=== PATIENT | female | born 2000 | race African-American/Black ===

== ENCOUNTER 2022-12-06 16:48 | Emergency (ER) | payer OTHER, SELFPAY ==
--- NOTE | ~2022-12-06 | XR_ITS ---
EXAMINATION: XR wrist LT min 3V DATE: 12/06/2022 17:18 INDICATION: Left wrist pain. Injury. TECHNIQUE: 4 views of left wrist were obtained. COMPARISON: None. FINDINGS: Bone alignment is normal. No fracture. Joint spaces are normal. IMPRESSION: 1. Normal left wrist. Reviewed, dictated and finalized at location E. IMPRESSION: 1. Normal left wrist.
--- NOTE | 2022-12-06 16:59 | ED.UPPEXIN ---
HPI - Extremity Injury (Upper) General Chief Complaint: Extremity Injury, Upper Stated Complaint: left wrist injury Time Seen by Provider: 12/06/22 17:33 Source: patient and RN notes reviewed Mode of arrival: ambulatory Limitations: no limitations History of Present Illness HPI narrative: 22-year-old female presents with concern for left wrist pain. Reports 3 days ago at work she was dealing with an equipment that was malfunctioning when she hyperflexed her wrist and also twisted it the same time. She reports she is having pain in the mid dorsal aspect of the wrist. She reports she used a brace without relief. Reports it was painful to go to work yesterday. MD complaint: injury to: left and wrist Related Data Allergies Allergy/AdvReac Type Severity Reaction Status Date / Time No Known Allergies Allergy Verified 12/06/22 16:55 Review of Systems Review of Systems: CONSTITUTIONAL: Denies malaise, chills, sweats, or fever. SKIN: Denies rash or itching, open skin, laceration, abrasion, redness, warmth, swelling. MUSCULOSKELETAL: Reports left wrist pain NEUROLOGIC: Denies numbness, weakness All systems reviewed & are unremarkable except as noted in HPI and below PMFSH Comments At time of signature, agree with nursing past medical, surgical, social and family history. There is no relevant family history pertinent to the presenting complaint Exam Narrative: GENERAL: Well-appearing, well-nourished, and in no acute distress. HEAD: Normocephalic, atraumatic. EYES: PERRLA, conjunctivae clear NECK: Supple. CHEST: Speaks in full sentences. No respiratory distress. HEART: Regular rate and rhythm. Normal and equal peripheral pulses. EXTREMITIES: Left wrist, hand, digits have grossly normal strength and sensation, limited range of motion, likely due to pain. No edema or ecchymosis. Normal sensation with sensitivity to light touch and pain. Dorsal mid wrist tenderness no open wounds, no skin tenting, no devitalized tissue or atrophy, no trophic changes, no obvious deformity, alignment normal, nearby joints and structures intact. Distal pulses palpable and equal bilaterally, skin warm, dry, pink. Capillary refill less than 3 seconds. SKIN: Warm, dry, no rash. NEURO: Alert and oriented x3. PSYCH: Normal mood and affect Course Course Emergency Course: Patient is aware of diagnosis, understands and agrees to treatment plan. Anticipatory guidance given. Patient agrees to follow-up as directed and is aware of reasons to seek care at the emergency department. Portions of this record may have been created with voice recognition software Level of Care: Express Care Visit Vital Signs Vital signs: Vital Signs Temperature 98.5 F 12/06/22 17:03 Pulse Rate 77 12/06/22 17:03 Respiratory Rate 16 12/06/22 17:03 Blood Pressure 123/45 L 12/06/22 17:03 Pulse Oximetry 99 12/06/22 17:03 Oxygen Delivery Room Air 12/06/22 17:03 Temperature 98.5 F 12/06/22 17:03 Pulse Rate 77 12/06/22 17:03 Respiratory Rate 16 12/06/22 17:03 Blood Pressure 123/45 L 12/06/22 17:03 Pulse Oximetry 99 12/06/22 17:03 Oxygen Delivery Room Air 12/06/22 17:03 Reviewed. MDM - Extremity Injury (Upper) MDM Narrative Medical decision making narrative: Patients injury and pain is consistent with musculoskeletal etiology. No signs of neurological or vascular compromise on exam. Compartments and tissues are soft without signs of compartment syndrome. Pain is felt appropriate for further evaluation on an outpatient basis. Imaging Data My impression: Images reviewed, interpreted by radiologist, agree, see report. Radiologist's impression: EXAMINATION: XR wrist LT min 3V DATE: 12/06/2022 17:18 INDICATION: Left wrist pain. Injury. TECHNIQUE: 4 views of left wrist were obtained. COMPARISON: None. FINDINGS: Bone alignment is normal. No fracture. Joint spaces are normal. IMPRESSION: 1. Normal left wrist. Crit
[2022-12-06 17:03] VITALS: BP 123/45; PULSE 77; RESP 16; TEMP 36.9; O2SAT 99
== END 2022-12-06 17:47 | disposition home or self-care (01) ==
PROVIDERS: Emergency Provider Nurse Practitioner; PCP Family Medicine
DX: S63.502A Unspecified sprain of left wrist, initial encounter (principal); S66.912A Strain of unspecified muscle, fascia and tendon at wrist and hand level, left hand, initial encounter; X50.9XXA Other and unspecified overexertion or strenuous movements or postures, initial encounter; Y99.0 Civilian activity done for income or pay
CPT/HCPCS: 73110; 99213; G0463

== ENCOUNTER 2023-11-22 15:46 | Outpatient (CLI) | payer OTHER, SELFPAY ==
[2023-11-22 17:15] LABS: SARS-CoV-2 RNA PCR Negative (Negative)
== END 2023-11-22 15:47 | disposition home or self-care (01) ==
PROVIDERS: PCP Family Medicine; Visit Provider Physician Assistant
DX: J02.9 Acute pharyngitis, unspecified (principal); Z20.822 Contact with and (suspected) exposure to COVID-19
CPT/HCPCS: 87635

== ENCOUNTER 2024-01-03 15:43 | Outpatient (CLI) | payer OTHER, SELFPAY ==
--- NOTE | ~2024-01-03 | US_ITS ---
EXAMINATION: US venous doppler [facility] DATE: 01/03/2024 16:11 INDICATION: Left thigh numbness, currently , r/o DVT . TECHNIQUE: Grayscale images without and with compression and Doppler images of the left lower extremi ty veins were obtained. COMPARISON: None FINDINGS: The left common femoral vein, profunda (deep) femoral vein, femoral vein, popliteal vein, peroneal v ein, posterior tibial veins, gastrocnemius vein, and greater saphenous vein are patent. IMPRESSION: Patent left lower extremity veins. No evidence of deep venous thrombosis. Reviewed, dictated and finalized at location K.
== END 2024-01-03 15:44 | disposition home or self-care (01) ==
LOC: ANHIMG 15:44
PROVIDERS: PCP Family Medicine; Visit Provider Physician Assistant
DX: M79.89 Other specified soft tissue disorders (principal)
CPT/HCPCS: 93971

== ENCOUNTER 2024-02-16 15:18 | Outpatient (CLI) | payer OTHER, SELFPAY ==
--- NOTE | ~2024-02-16 | XR_ITS ---
XR chest 2V Ordering provider: Paulina Conte CNM History: 24 years Female with . Wheezing . Comparison: None. FINDINGS: MEDIASTINUM: The cardiac silhouette is not enlarged. LUNGS: No infiltrates, effusions or pneumothorax. Prominent markings in the lower lobes. OTHER: No free air under the diaphragm. IMPRESSION: No acute cardiopulmonary pathology. Reviewed, dictated and finalized at location A.
== END 2024-02-16 15:19 | disposition home or self-care (01) ==
LOC: ANHIMG 15:23
PROVIDERS: PCP Family Medicine; Visit Provider Advanced Practice Midwife
DX: R06.2 Wheezing (principal); Z3A.17 17 weeks gestation of pregnancy
CPT/HCPCS: 71046

== ENCOUNTER 2024-05-23 22:58 | Emergency (ER) | payer OTHER, SELFPAY ==
--- OUTSIDE RECORDS SUMMARY | 2024-05-23 23:00 | XMS_ITS | Data Portability ---
Author Organization [facility] Address [address] [place] [address] [place] [address] Care Team Providers Care Spot Facer Name Role Phone ARCHIEEYAL JARRETT Primary Care Provider Assessment Encounter Date Assessment Date Assessment LastModified by Organization Details LastModified Time 04/05/2024 04/05/2024 Patient is ___weeks . Discussed plan. [email or web address] Not available 04/05/2024 17:37:01 05/03/2024 05/03/2024 Patient is __28_weeks . Discussed plan. [email or web address] Not available 05/03/2024 10:15:25 05/17/2024 05/17/2024 Patient is _30__weeks . Discussed plan. [email or web address] Not available 05/17/2024 11:19:33 Plan of Treatment Reminders Order Date Submit Date Provider Last Modified By Organization Details Last Modified Time Details Appointments OB ROUTINE 2024 09:45A M Paulina Conte CNM Not available Not available Not available U/S OB GROWTH 2024 10:00A M ULTRASOUND Not available Not available Not available OB ROUTINE 2024 10:30A M Paulina Conte CNM Not available Not available Not available Lab None recorde d. Referral None recorde d. Procedures None recorde d. Surgeries None recorde d. Imaging US, obstetr ic, follow- up 2023 024 [email or web address] [address], [address], [place], [address], 04/05/2024 22:38:15 US, obstetr ic, follow- up 2024 025 [email or web address] [place], [address], [address], [place], [address], 05/17/2024 12:52:06 Medication Orders None recorde d. Patient TargetsNo targets recorded. Patient InstructionsNo instructions recorded. Reason for Referral None Reported. Results Created Date Observation Date Name Description Value Unit Range Abnormal Flag Note LastModifiedBy Organization Detail LastModifiedTime 03/10/20 24 03/10/2024 HEMAT OCRIT (HCT) HCT 38.6 % (based on docume nted legal sex) 34.0-4 5.0 Not Available [facility] (Lab) [address], [place], [address], 03/11/2024 15:31:00 03/10/20 24 03/10/2024 HEMOG LOBIN (HGB) HGB 12.2 g/dL (based on docume nted legal sex) 11.6-1 5.4 Not Available [facility] (Lab) [address], [place], [address], 03/11/2024 15:31:01 03/10/20 24 03/10/2024 GTT - GESTA SHELBY L SCREE N, ACOG OB glucose, 1 hour screen 97 mg/dL 70-135 Not Available [facility] (Lab) [address], [place], [address], 03/11/2024 15:31:01 03/10/20 24 03/10/2024 HIV 1/2 ANTIG EN/AN TIBOD Y, REFLE X CONFI RMATI ON HIV antigen/anti body Nonrea ctive nonrea ctive HIV-1 antig en and HIV-1 /HIV- 2 antib odies were not detec ange. No labor atory evide nce of HIV infec tion. Not Available [facility] (Lab) [address], [place], [address], 03/11/2024 15:31:02 03/10/20 24 03/10/2024 RPR SCREE N, REFLE X TITER /CONF IRMAT ION RPR screen Nonrea ctive nonrea ctive Not Available [facility] (Lab) [address], [place], [address], 03/11/2024 15:31:02 05/17/19 25 05/17/2024 GTT - GESTA SHELBY L SCREE N, ACOG OB glucose, 1 hour screen 109 mg/dL 70-135 Not Available [facility] (Lab) [address] [facility], [place], [address], 05/18/2024 11:06:04 05/17/19 25 05/17/2024 HEMOG LOBIN (HGB) HGB 11.8 g/dL (based on docume nted legal sex) 11.6-1 5.4 Not Available [facility] (Lab) [address], [place], [address], 05/18/2024 11:06:05 05/17/19 25 05/17/2024 HEMAT OCRIT (HCT) HCT 36.5 % (based on docume nted legal sex) 34.0-4 5.0 Not Available [facility] (Lab) [address] [facility] [address], [place], [address], 05/18/2024 11:06:05 05/17/19 25 05/17/2024 HIV 1/2 ANTIG EN/AN TIBOD Y, REFLE X CONFI RMATI ON HIV antigen/anti body Nonrea ctive nonrea ctive HIV-1 antig en and HIV-1 /HIV- 2 antib odies were not detec ange. No labor atory evide nce of HIV infec tion. Not Available [facility] (Lab) [address] [facility], [place], [address], 05/18/2024 11:06:06 05/17/19 25 05/17/2024 RPR SCREE N, REFLE X TITER /CONF IRMAT ION RPR screen Nonrea ctive nonrea ctive Not Available [facility] (Lab) [address], [place], [address], 05/18/2024 11:06:06 03/10/20 24 03/10/2024 US, obste tric, 2nd or 3rd trime ster No observ ation [facility]. [email or web address] [address], [place], [address], 03/10/2024 17:37:07 03/10/20 24 03/10/2024 US, obste tric, 2nd or 3rd trime ster No observ ation record ed. REECE [address], [place], [address], 03/15/2024 11:51:47 04/05/20 24 04/05/2024 US, obste tric, follo w-up No observ ation record ed. [email or web address] [facility] [address], [place], [address], 04/05/2024 16:24:38 04/05/20 24 04/05/2024 US, obste tric, follo w-up No observ ation record ed. [email or web address] [address], [place], [address], 04/05/2024 21:57:02 05/17/19 25 05/17/2024 US, obste tric, follo w-up No observ ation record ed. [email or web address] [facility] [address], [place], [address], 05/17/2024 13:51:17 05/17/19 25 05/17/2024 US, obste tric, follo w-up No observ ation record ed. [email or web address] [address], [place], [address], 05/17/2024 12:35:24 Result Notes None recorded. Problems Name Problem SNOMED Code Status Onset Date Resolution Date Notes Provider Name and Address Organization Details Recorded Time Contrace ption care manageme nt Completed 201709/10/2021 Encounte r for contrace ptive manageme nt, unspecif ied;Jay rded Elsewher e: No Locat ion: [facility] S ource: EHR Charger Operator karin: N Practi ce ID: 0001 Elmer lable Time: 11:30:00 AM Mehnaz Gomez [facility] 2 17:49:57 Premenst rual tension syndrome 34436263 Completed 201209/10/2021 Premenst rual tension syndrome s;Record ed Elsewher e: No Locat ion: [facility] S ource: EHR Charger Operator karin: N Fabyti ce ID: 0001 Elmer lable Time: 09:30:00 AM Mehnaz Gomez [facility] 2 17:49:[address] Concept Completed 201409/10/2021 Encntr for routine child health exam w/o abnormal findings ;Recorde d Elsewher e: No Locat ion: [facility] S ource: EHR Charger Operator karin: N Fabyti ce ID: 0001 Elmer lable Time: 02:45:00 PM Mehnaz Gomez [facility] 2 17:49:[address] Concept Completed 201409/10/2021 Encntr for gynecological assistant exam (general ) (routine ) w/o abn findings ;Practic e ID: 0001 Mehnaz Gomez [facility] 2 17:49:57 Vaginola bial hernia Completed 201809/10/2021 Other specifie d noninfla mmatory disorder s of vagina;P ractice ID: 0001 Mehnaz Jason wall [facility] 2 17:49:57 Syphilis test finding 814633386 Completed 201809/10/2021 Encounte r for STD screenin g;Record ed Elsewher e: No Locat ion: Cassandra koehler [facility] S ource: EHR Charger Operator karin: N Bay ce ID: 0001 Elmer lable Time: 03:30:00 PM Mehnaz Gomez [facility], [facility] 2 17:49:57 Pregnanc y 46055634 Active 2023 Haleyjuancarlos Parker [facility], [facility] 4 11:34:49 Mixed anxiety and depressi ve disorder 789400783 Active no current treatmen t, school related Paulina Conte CNM [address], [place], [address], [facility] 4 12:02:43 Obesity 371322371 Active BMI 40, plan antenata l testing Paulina Conte CNM [address], [place], [address], [facility] 4 12:04:06 Hemoglob in A1c measurem ent Active elevated 5.8 Early 1hr GCT 20wks Penny Burnham [facility], [facility] 4 11:28:47 Hemoglob in A1c measurem ent Active elevated 5.8 Early 1hr GCT 20wks Penny Burnham [facility], [facility] 4 11:28:47 Rubella non-immu ne 731496834 Active MMR PP Penny Burnham [facility], [facility] 4 11:29:35 Rubella non-immu ne 403254479 Active MMR PP Penny Burnham [facility] 4 11:29:35 Velament ous insertio n of umbilica l cord 02004539 Active growth q 4 Paulina Conte CNM [address], [place], [address], [place] [facility] 4 10:42:14 Pain in pelvis 83950917 Active Anshu Sahni MD [address], [place], [address], [place] [facility] 4 17:51:42 Problem Notes None recorded. Procedures Surgical History Date Name Laterality Status Provider Name and Address Organization Details Recorded Time 3 Date of Last Pap Smear completed Haley Parker [facility] 12/15/2023 12:42:14 1 extraction of wisdom tooth completed Mehnaz Gomez [facility] 09/11/2021 14:21:58 Imaging Results Imaging Date Name Status LastModified by Organiz ation Details LastModified Time 03/10/2024 US, obstetric, 2nd or 3rd trimester completed [email or web address] [place] [address], [place], [address], 03/10/2024 17:37:07 03/10/2024 US, obstetric, 2nd or 3rd trimester completed REECE [address], [place], [address], 03/15/2024 11:51:47 04/05/2024 US, obstetric, follow-up completed [email or web address] [place] [address], [place], [address], 04/05/2024 16:24:38 04/05/2024 US, obstetric, follow-up completed [email or web address] [address], [place], [address], 04/05/2024 21:57:02 05/17/2024 US, obstetric, follow-up completed [email or web address] [place] [address], [place], [address], 05/17/2024 13:51:17 05/17/2024 US, obstetric, follow-up completed [email or web address] [address], [place], [address], 05/17/2024 12:35:24 Procedure Notes None recorded. Medical Equipment None Reported. Allergies Allergen ID Allergen Name Allergen Category Reaction Reaction Severity Criticality Documentation Date Start Date Code Code System Note Provider Name and Address Organization Details Recorded Time 54188 kiwi fruit extract food Not available Not available Not available 01/19/2024 70166 01 RxNorm Haley Parker [facility] 11:33:49 No known drug allergies Medications Name Sig Start Date Stop Date Status Note LastModified by Organization Details LastModified Time metronidazo le 500 mg tablet TAKE 1 TABLET BY MOUTH TWICE DAILY WITH MEALS FOR 7 DAYS 10/20 completed Not Available Not Available Not Available albuterol sulfate HFA 90 mcg/actuati on aerosol inhaler INHALE 2 PUFFS BY MOUTH EVERY 4 HOURS FOR 7 DAYS NEEDED active Not Available Not Available No t Available cefdinir 300 mg capsule TAKE 1 CAPSULE BY MOUTH EVERY 12 HOURS FOR 10 DAYS 12/14 completed Not Available Not Available Not Available chlorhexidi ne gluconate 0.12 % mouthwash Place 15 mL twice a day by mucous membrane route for 30 days. 12/02 completed Not Available Not Available Not Available ID NOW COVID-19 Test Kit TEST DIRECTED TODAY 12/03 completed Not Available Not Available Not Available Vitals Date Recorded Body weight Systolic blood pressure Diastolic blood pressure Provider Name and Address Organization Details Last Updated DateTime 04/05/2024 998516.467 99 g 121 mm[Hg] 79 mm[Hg] Nayeli Davis [facility] 04/05/2024 17:37:55 Date Recorded Body weight Body mass index (BMI) Body height Systolic blood pressure Diastolic blood pressure Provider Name and Address Organization Details Last Updated DateTime 05/03/2024 123977.0 6036 g 42.4 kg/m2 156.21 cm 116 mm[Hg] 75 mm[Hg] Haley Parker [facility] 5 09:55:48 Date Recorded Body height Body mass index (BMI) Body weight Systolic blood pressure Diastolic blood pressure Provider Name and Address Organization Details Last Updated DateTime 05/17/2024 156.21 cm 42.9 kg/m2 373746.8 3747 g 104 mm[Hg] 69 mm[Hg] Haley Parker [facility] 5 11:01:24 Social History Question Answer Notes LastModified by Organizat ion Details LastModified Time Tobacco Smoking Status Never Smoker Jeanne Sinclair null, [facility] 12/03/2022 09:45:28 Do You Have An Advance Directive? No Information not available 10/20/2021 What Is Your Level Of Alcohol Consumption? None [email or web address] Information not available 12/15/2023 If You Are , What Was Your Level Of Alcohol Consumption Prior To ? Occasional [email or web address] Information not available 12/15/2023 How Many Years Have You Consumed Alcohol? 4 Information not available 10/20/2021 Are You Blind Or Do You Have Difficulty Seeing? No Information not available 09/11/2021 What Is Your Level Of Caffeine Consumption? Moderate [email or web address] Information not available 12/15/2023 How Much Tobacco Do You Chew? None Information not available 10/20/2021 In The 14 Days Before Symptom Onset, Have You Had Close Contact With A Laboratory-confir med COVID-19 While That Case Was Ill? No Information not available 10/20/2021 In The 14 Days Before Symptom Onset, Have You Had Close Contact With A Person Who Is Under Investigation For COVID-19 While That Person Was Ill? No Information not available 10/20/2021 Have You Been To An Area Known To Be High Risk For COVID-19? No Information not available 10/20/2021 Are You Deaf Or Do You Have Serious Difficulty Hearing? No Information not available 09/11/2021 What Type Of Diet Are You Following? 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 Yes Information not available 10/20/2021 Do You Use Protection During Sex? No Information not available 10/20/2021 Do You Use Your Seat Belt Or Car Seat Routinely? Yes Information not available 09/11/2021 Do You Have Smoke And Carbon Monoxide Detectors In Your Home? Yes Information not available 09/11/2021 How Much Tobacco Do You Smoke? No Information not available 10/20/2021 Do You Feel Stressed (tense, Restless, Nervous, Or Anxious, Or Unable To Sleep At Night)? [id number] Information not available 10/20/2021 Do You Use Any Illicit Or Recreational Drugs? No Marijuana [email or web address] Information not available 12/15/2023 Do You Use Sunscreen Routinely? No Information not available 10/20/2021 How Many Years Have You Smoked Tobacco? 0 Information not available 10/20/2021 Have You Used IV Drugs? No Information not available 10/20/2021 Sex: Unknown Functional Status Question Answer Note LastModified by Organizat ion Details LastModified Time Do you have difficulty walking or climbing stairs? No [email or web address] Information not available 12/03/2022 Are you able to walk? YESWOREST Information not available 09/11/2021 Are you able to care for yourself? Yes [email or web address] Information not available 12/03/2022 Do you have difficulty dressing or bathing? No Information not available 12/03/2022 What is your exercise level? Occasional Information not available 09/11/2021 Mental Status None recorded. Family History Relationship Description Onset Age of this Age Resolved Age Notes LastModified by Organization Details LastModified Time Maternal Grandmother Asthma Not available 2021 14:20:58 Medical History Condition Response Allergies (Food, seasonal, environmental ) Y Other N Blood Transfusion N Breast Cancer N Drug/Latex Allergies/Reactions N Dermatologic Disorders N Lung Disease N Defects or Inherited Disease N Breast Problem N Gestational Diabetes N Hematologic disorders N Anesthesia Complications N History of STI Y Deep Vein Thrombosis N Polycystic ovary syndrome N Anxiety Disorder N Autoimmune disease N Arthritis N Polyps N Infertility N Acid Reflux (GERD) N History of abnormal pap N Cancer N Varicosities N Stroke N Neurologic/Epilepsy N Endometriosis N High Cholesterol N Fibromyalgia N Headaches N Kidney Disease N Heart Problems N Thyroid Problems N Kidney or Bladder Problems N GI Problems N Eating Disorder N Anemia N Art (IVF or FET) N Psychiatric Illness N Ovarian Cancer N Diabetes N Pulmonary (TB, Asthma) N Hepatitis/Liver Disease N No Past Medical History N Eczema N Urinary Tract Infection N Abuse/Domestic Violence N Asthma N Trauma/Violence N Depression/ depression N Heart Disease N Pre-Eclampsia N Hypertension N Osteoporosis N Thrombophilias N Gynecological History Statement/Question Response Abnormal Pap N Flow Light Date of Last Mammogram Date of LMP 10/20/2023 On BCP's at Conception? N N Was last menstrual period normal Y STIs/STDs Y HPV Vaccine N Current Control Method Are cycles usually normal Y Sexually Active? Y Menses Monthly Y Date of DEXA bone scan Age of first menstrual cycle 11 Date of Last Pap Smear 12/03/2022 Sexual Problems? N LMP Definite N Obstetrics History GPAL:G 1 P 0 0 0 0 Type Value Living 0 Total 1 Past Encounters Encounter ID Performer Location Encounter Start Date Encounter Closed Date Diagnosis/Indication Diagnosis SNOMED-CT Code Diagnosis ICD10 Code Diagnosis Note [id number] Cheryl Whalen , [facility] [address] [address] 09/11/2021 13:45:49 09/11/2021 14:57:34 Gynecologic examination 61208653 Z01.419 Take Calcium with Vitamin D 1200mg daily if not receiving in daily diet. It is strongly advised to have an annual flu shot and up can obtain at most pharmacies . If you have not had a TDap shot in the last 10 years you should obtain one as well. Discussed with patient & provided with informatio n regarding Gardisil vaccine to prevent the 4 strains for HPV that cause cervical cancer if under age 26. Encourage safe sexual practices, to use condoms and limit partners if not already in a monogamous relationsh ip. Do monthly self breast exams. Have mammogram yearly or every other year depending on family history. BRCA testing is now available for patients with strong genetic history of female cancer. If interested contact the office. Engage in daily exercise of low impact aerobic exercise 45-60 minutes 4-5 times weekly. Avoid tobacco and illicit drugs as well as using moderation with alcohol intake less than 1-2 8 oz beverages daily. This lifestyle behavior pattern will lead to less health conditions and longer life span. If BMI greater than 25 weight watchers or dietary consult advised. Patient received above instructio ns, and questions have been answered. If you have any questions please call or respond to this email. Patient was made aware of the patient portal and may obtain a paper copy of today's plan if desired. Pap sentSTD Screen sent (serum/swa b)Genetic Screen discussedC olon Screen naDexa Screen naRoutine Labs namammo naB: condomsCou nseled HPV vaccinatio n-can obtain at health dept/[facility] ee/[facility] in clinics. Sexually t ransmitted infectious disease 5876239 A64 Wants serum/pap std testing [id number] DAY[facility] [address] [address] 10/20/2021 09:31:04 10/20/2021 10:20:24 Vaginitis 00084056 N76.0 A64 Feels like she has an odor but unsure.Has n't gotten smell entirely back after covid.Part ner treatment initiated. Not SA since she took meds.TOMAS sent Will await results prior to determinin g treatment. Time spent in visit is a total of 15 mins with at least 50% of visit consisting of counseling and review of plan of care. Geographic tongue 441884 01 K14.1 Mouth wash ordered to manage this issue.Refe r to PCP for further evaluation [id number] DAYDAY Denney [facility] [address] [address] 12/03/2022 09:45:06 12/03/2022 10:49:31 Gynecologic examination 25498142 Z01.419 Take Calcium with Vitamin D 1200mg daily if not receiving in daily diet. It is strongly advised to have an annual flu shot and up can obtain at most pharmacies . If you have not had a TDap shot in the last 10 years you should obtain one as well. Discussed with patient & provided with informatio n regarding Gardisil vaccine to prevent the 4 strains for HPV that cause cervical cancer if under age 26. Encourage safe sexual practices, to use condoms and limit partners if not already in a monogamous relationsh ip. Do monthly self breast exams. Have mammogram yearly or every other year depending on family history. BRCA testing is now available for patients with strong genetic history of female cancer. If interested contact the office. Engage in daily exercise of low impact aerobic exercise 45-60 minutes 4-5 times weekly. Avoid tobacco and illicit drugs as well as using moderation with alcohol intake less than 1-2 8 oz beverages daily. This lifestyle behavior pattern will lead to less health conditions and longer life span. If BMI greater than 25 weight watchers or dietary consult advised. Patient received above instructio ns, and questions have been answered. If you have any questions please call or respond to this email. Patient was made aware of the patient portal and may obtain a paper copy of today's plan if desired. WWEBC - condomsBC declined at this timepap updatedSTI testing added to papblood STI panel ordered Venereal d isease screening 959717248 Z11.3 Goiter 8992314 E04.9 possible goiter notedthyro id panel orderedf/u with PCP for for thyroid u/s / further management Weight increased 9019788 00 R63.5 Sexually t ransmitted infectious disease 2626090 A64 [id number] DAYDAY Denney [place] [address] [place] [address] 08/12/2023 15:13:44 08/12/2023 15:32:18 Venereal disease screening 290341880 Z11.3 gc/ct/tric h testing sentHIV/He p B&C/Syphil is testing ordered per pt requestsaf e sexual practices discussedq uestions answered Time spent in visit is a total of 15 mins with at least 50% of visit consisting of counseling and review of plan of care. Sexually t ransmitted infectious disease 6108606 A64 [id number] Sanjuanita [place] [address] [place] [address] 12/15/2023 11:48:35 12/15/2023 12:21:56 [id number] Paulina Conte CNM [facility] [address] [place] [address] 12/15/2023 11:52:34 12/15/2023 13:10:38 Amenorrhea 95149629 N91.2 reviewed office precaution sf/u 12 weeks new ob and first lookpap up to date2 cm right cyst Venereal d isease screening 567040480 Z11.3 [id number] [facility] [address] [address] 01/19/2024 10:52:55 01/19/2024 11:38:36 screening 636099677 Z36.82 Z3A.13 [id number] Paulina Conte [facility] [address] [address] 01/19/2024 10:54:12 01/19/2024 12:25:18 Routine care 687585655 Z34.90 [id number] Paulina Conte [facility] [address] [address] 02/16/2024 15:38:01 02/16/2024 16:27:04 Expiratory wheezing 0645551 R06.2 Gestation period, 17 weeks 90918789 Z3A.17 [id number] [facility] [address] [address] 03/10/2024 09:11:49 03/10/2024 10:36:06 screening for malformation 220156275 Z36.3 Z3A.20 [id number] Paulina Conte [facility] [address] [address] 03/10/2024 09:14:29 03/10/2024 10:53:17 Gestation period, 20 weeks 28469685 Z3A.20 [id number] [facility] [address] [place] [address] 04/05/2024 15:28:46 04/05/2024 16:24:57 screening 353361064 Z36.2 O43.122 Z3A.24 [id number] Anshu Sahni MD [facility] [address] [address] 04/05/2024 15:30:05 04/05/2024 17:59:54 Routine care 647209685 Z34.90 [id number] Paulina Conte [facility] [address] [address] 05/03/2024 09:44:44 05/03/2024 10:17:48 Routine care 291130411 Z34.90 [id number] Sylvia [facility] [address] [address] 05/17/2024 09:46:25 05/17/2024 10:37:31 Velamentous insertion of umbilical cord 43401039 O43.123 O99.213 Z3A.30 [id number] Paulina Conte [facility] [address] [address] 05/17/2024 09:47:30 05/17/2024 11:23:40 Gestation period, 30 weeks 32866004 Z3A.30 continue vitamin Health Concerns Section Related Observation LastModified by Organization Detai ls LastModified Time None Recorded Concern Status LastModified by Organization Details LastModified Time None Recorded Advance Directives Directive N: Payers Encounter Date Sequence Insurance Name Policy Number Policy [place] Covered Member ID [place] Member ID Guarantor Name 04/05/2024 2 [place] [id number] Dejoise I Charlene [id number] Or I Kegler 04/05/2024 1 [facility] [facility] [id number] 1 Orah I Kegler 04/05/2024 2 [place] [id number] Dejoise I Charlene [id number] 17 Orah I Kegler 04/05/2024 1 [employer] [facility] [employer] [id number] [id number] 1 Orah I Kegler 05/03/2024 2 [place]) [id number] Dejoise I Charlene [id number] 17 Orah I Kegler 05/03/2024 1 [employer] - [employer] (PP[place]) [id number] Nadira Gomes [id number] 1 Orah I Kegler 05/17/2024 2 [place] [id number] Dejoise I Charlene [id number] 17 Or I Kegler 05/17/2024 1 [employer] - [employer] (PPO) [id number] Nadira Gomes [id number] 1 Orah I Kegler 05/17/2024 2 [place]) [id number] Dejoise I Charlene [id number] 17 Or I Kegler 05/17/2024 1 [employer] ([place]) [id number] Nadira Gomes [id number] 1 Or Kaylee Taylorgler OBGyn Episode Ob Episode Information Episode Created Date Number of Fetuses Patient Bloodtype Patient rh Status Prepregnancy Weight lbs Domestic Partner Domestic Partner Phone Father Name Intravenous Therapy Nurse Status 01/19/20 24 1 A Positive 204 Ahmad Nijme OPEN Fetus Data First Name Last Name Admitted to NICU Weight (g) Sex Living Outcome Pediatric Complications Fetus ID Race Codes Race Delivery Type [id number] Problems Problem Notes Problem Name Start Date End Date Resolution Snomed Code Not e Pain in pelvis 63268771 Hemoglobin A1c measurement 85280467 elevated 5.8 Ea rly 1hr GCT 20wks Mixed anxiety and depressive disorder 041030894 no curre nt treatment, school related Rubella non-immune [id number] M MR PP Obesity [id number] BMI 40, pl an testing Velamentous insertion of umbilical cord 20563507 growth q 4 Eulalio Calculation Initial Eulalio Date Initial Exam Date Initial Exam Provider Initial Ultrasound Date Last Menstrual Period Date Ultra Sound Weeks Gestation 07/26/2024 01/19/2024 12/15/2023 10/20/2023 8 Eighteen To Twenty Week Eulalio Update Ultra Sound Date Fundal Height At Umbil Quickening Date Ultra Sound Latest Weeks Gestation Final Eulalio Confirmed By Final Eulalio Confirmed Date Final Eulalio Date Ultra Sound Latest Days Gestation 0 0 Pre- Flowsheet Flowsheet Date 01/19/2024 Maki Score Blood Edema Fundus Height Fundus Units Glucose Ketones Leukocytes Nitrite Labor Signs Protein Cervic Dilation Cervic Effacement Cervic Station Type Weight in lbs Pre/Post Dialysis Refused 217.599252717297 BP Diastolic BP Location Tested BP Systolic BP Type 65 L arm 98 sitting Fetus Heart Rate Present Fetus Movement Comments Patient c/o nausea and vomit ing, sharp right side pain, and slight swelling in legs. seeing PT for leg pain, reviewed precautions and education, declined medication for anxiety or flexeril for leg pain, will continue to monitor, plan 4 week ob visit, begin routine care. reviewed US, labs today Flowsheet Date 02/16/2024 Maki Score Blood Edema Fundus Height Fundus Units Glucose Ketones Leukocytes Nitrite Labor Signs Protein Cervic Dilation Cervic Effacement Cervic Station none Type Weight in lbs Pre/Post Dialysis Refused 215.269022420801 BP Diastolic BP Location Tested BP Systolic BP Type 84 123 Fetus Heart Rate Present Fetus Movement A Yes Comments Patient states that feel lik e having flu like symptoms cough, congestion dizzy, nausea and pelvic pain. sxs couple weeks plan chest XR today, expiratory wheezing audible, +FM, US +FHR f/u 3 weeks anatomy with early glucose Flowsheet Date 03/10/2024 Maki Score Blood Edema Fundus Height Fundus Units Glucose Ketones Leukocytes Nitrite Labor Signs Protein Cervic Dilation Cervic Effacement Cervic Station Type Weight in lbs Pre/Post Dialysis Refused BP Diastolic BP Location Tested BP Systolic BP Type Fetus Heart Rate Present Fetus Movement Comments Flowsheet Date 03/10/2024 Maki Score Blood Edema Fundus Height Fundus Units Glucose Ketones Leukocytes Nitrite Labor Signs Protein Cervic Dilation Cervic Effacement Cervic Station neg none Type Weight in lbs Pre/Post Dialysis Refused 221.921670391664 BP Diastolic BP Location Tested BP Systolic BP Type 65 110 Fetus Heart Rate Present Fetus Movement A Yes Comments Patient is having pelvic alma n. dsicussed chiropractor, stretches, reviewed us, velamentous insertion, anatomy incomplete, +FM, precautions and education f/u 4 weeks Flowsheet Date 04/05/2024 Maki Score Blood Edema Fundus Height Fundus Units Glucose Ketones Leukocytes Nitrite Labor Signs Protein Cervic Dilation Cervic Effacement Cervic Station Type Weight in lbs Pre/Post Dialysis Refused BP Diastolic BP Location Tested BP Systolic BP Type Fetus Heart Rate Present Fetus Movement Comments Flowsheet Date 04/05/2024 Maki Score Blood Edema Fundus Height Fundus Units Glucose Ketones Leukocytes Nitrite Labor Signs Protein Cervic Dilation Cervic Effacement Cervic Station Type Weight in lbs Pre/Post Dialysis Refused 227.728433126481 BP Diastolic BP Location Tested BP Systolic BP Type 79 L arm 121 sitting Fetus Heart Rate Present A 145 Fetus Movement A Yes Comments reports pelvic pain. Would l stacy a belly band. She was given precautions on pelvic pain. Flowsheet Date 05/03/2024 Maki Score Blood Edema Fundus Height Fundus Units Glucose Ketones Leukocytes Nitrite Labor Signs Protein Cervic Dilation Cervic Effacement Cervic Station trace 30 cm Type Weight in lbs Pre/Post Dialysis Refused 228.756754041299 BP Diastolic BP Location Tested BP Systolic BP Type 75 116 Fetus Heart Rate Present A 147 Present Fetus Movement A Yes Comments Patient is having numbness i n legs, cramping, swelling and nausea. rpt gct next visit growth s>d, education and precautions start visits every 2 weekswants to keep placenta after delivery, discussed rsv and tdap f/u 2 weeks Flowsheet Date 05/17/2024 Maki Score Blood Edema Fundus Height Fundus Units Glucose Ketones Leukocytes Nitrite Labor Signs Protein Cervic Dilation Cervic Effacement Cervic Station Type Weight in lbs Pre/Post Dialysis Refused BP Diastolic BP Location Tested BP Systolic BP Type Fetus Heart Rate Present Fetus Movement Comments Flowsheet Date 05/17/2024 Maki Score Blood Edema Fundus Height Fundus Units Glucose Ketones Leukocytes Nitrite Labor Signs Protein Cervic Dilation Cervic Effacement Cervic Station neg trace neg Type Weight in lbs Pre/Post Dialysis Refused 231.218631132272 BP Diastolic BP Location Tested BP Systolic BP Type 69 104 Fetus Heart Rate Present Fetus Movement A Yes Comments Patient is having back pain, leg numbness, swelling, and nausea. footling breech, spinning babies exercises, efw 25%, rsv at 32 weeks, cigarette machine filler rec given, education and precautions f/u 2 weeks Menstrual History Last Menstrual Date Menses Monthly On Bcp Conception Prior Menses Frequency Hcg Plus Date Menarche Onset Age 0610/20/2023 true Genetic Screening And Infection History Question Response Note Mental Retardation/Autism false Patient's Age Will Be 35 Years Or Older At Estim ated Date of Delivery false Thalassemia (Amharic, Occitan, Mediterranean, Or Background): MCV < 80 false Neural Tube Defect (Meningomyelocele, Spina Bifi da, Or Anencephaly) false Congenital Heart Defect false Down Syndrome false Jeremías-Sachs (eg, Denominational, Cajun, Danish-Kittitas) f alse Awais Disease false Sickle Cell Disease Or Trait () false Hemophilia Or Other Blood Disorders false Muscular Dystrophy false Cystic Fibrosis false Dolph's Chorea false Intellectual Disability/Autism false If Yes, Was Person Tested For Fragile X? false Other Inherited Genetic Or Chromosomal Disorder false Maternal Metabolic Disorder (eg, Type 1 Diabetes , PKU) false Patient Or Baby's Father Had A Child With Defects Not Listed Above false Recurrent Loss, Or A Stillbirth false Medications (including Suppl ements, Vitamins, Herbs, OTC Drugs), Illicit/Recreational Drugs, Alcohol false If Yes, Agent(s) And Strength/Dosage false Any Other Genetic History false Live With Someone With TB Or Exposed To TB false Patient Or Partner Has History Of Genital Herpes false Rash Or Viral Illness Since Last Menstrual Perio d false History Of STD, Gonorrhea, Chlamydia, HPV, Syphi lis false Other Infection History false History of HIV false History of Hepatitis false Prior GBS-infected child false Hemoglobinopathy Or Carrier false Other Structural Defect false Recent Travel History Outside of Country false Delivery Information Delivery Date Delivery Type Labor Anesthesia Weeks Gestation Incision Type Labor Labor Length Hrs Delivered By Post Complications Tubal Sterilization Discharge Date Comments Discharge Information Feeding Method Contraceptive Method Maternal HG B and HCT Levels
[2024-05-23 23:06] VITALS: BP 128/69; PULSE 99; RESP 20; TEMP 37.3; O2SAT 99
[2024-05-23 23:25] LABS: Add Urine Microscopic? YES; Appearance Urine Cloudy (Clear); Bacteria Urine 3+ /hpf; Bilirubin Urine Negative (Negative); Blood Urine Negative (Negative); Color Urine Yellow (Yellow); Glucose Urine UA Negative (Negative); Ketones Urine 3+ mg/dL (Negative); Leukocyte Esterase Ur 2+ LEU/UL (Negative); Nitrate Urine Negative (Negative); Non Pathogenic Casts 0-2; Protein Urine Trace mg/dL (Negative); RBC Urine 0-2 /hpf (0-2); Specific Grav Ur 1.021 (1.001-1.035); Squamous Epithelial Cell Urine Moderate /hpf (Few); WBC Urine 21-50 /hpf (0-3)
[2024-05-24 00:01] LABS: Influenza A QL RT-PCR Negative (Negative); Influenza B QL RT-PCR Negative (Negative); RSV RNA, RT-PCR Negative (Negative); SARS-CoV-2 RNA PCR Negative (Negative)
[2024-05-24 01:16] VITALS: O2SAT 100
[2024-05-24 01:20] VITALS: BP 116/71; PULSE 81; RESP 18; TEMP 37.1; O2SAT 99
[2024-05-24 01:40] LABS: Basophils Percent Auto 0.3 % (0.2-1.2); Eosinophils Absolute Auto 0.1 K/mm3 (0-0.3); Eosinophils Percent Auto 0.5 % (0-4.4); Hematocrit 35.8 % (37.0-47.0); Immature Granulocyte Absolute 0.14 K/mm3 (0.00-0.031); Immature Granulocyte Percent A 1.3 % (0-0.5); Lymphocytes Absolute Auto 1.25 K/mm3 (0.9-3.2); Mean Corpuscular HGB Conc 33.5 g/dl (32-36); Mean Corpuscular Hemoglobin 29.3 pg (26-34); Mean Corpuscular Volume 87.3 fl (80-100); Mean Platelet Volume 11.1 fl (7.4-10.4); Monocytes Absolute Auto 0.8 K/mm3 (0.1-0.6); Monocytes Percent Auto 7.2 % (2.6-8.5); Neutrophils Absolute Auto 8.2 K/mm3 (1.3-6.7); Neutrophils Percent Auto 78.7 % (45.5-73.1); Platelet Count Result 201 k/mm3 (150-375); White Blood Count 10.4 K/mm3 (4.5-10.0)
[2024-05-24 02:01] LABS: Alanine Aminotransferase 16 U/L (6-35); Albumin Level 3.5 g/dL (3.5-5.1); Alkaline Phosphatase 73 U/L (38-126); Anion Gap 10 mmol/L (4-12); Aspartate Amino Transferase 21 U/L (14-36); Bilirubin,Total 0.8 mg/dL (0.2-1.3); Blood Urea Nitrogen 8 mg/dL (7-17); Calcium 9.1 mg/dL (8.4-10.2); Carbon Dioxide 18 mmol/L (22-30); Chloride 103 mmol/L (98-107); Estimated CRCL calculation 139 ml/min; Estimated Glomerular Filt Rate > 60; Glucose 103 mg/dL (65-110); Lipase 38 U/L (23-300); Potassium 3.7 mmol/L (3.4-5.0); Sodium 131 mmol/L (137-145)
--- NOTE | 2024-05-24 03:12 | PC.NURSE ---
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 Pt was given portal guide pamphlet and states she can call hospital for medical records and to come back if anything worsens.
== END 2024-05-24 03:34 | disposition left against medical advice (07) ==
PROVIDERS: Emergency Provider Student in an Organized Health Care Education/Training Program; PCP Family Medicine
DX: R50.9 Fever, unspecified (principal)
CPT/HCPCS: 36415; 80053; 81001; 83690; 85025; 87637; 99199

== ENCOUNTER 2024-05-26 11:37 | Observation (INO) | payer OTHER, SELFPAY ==
[2024-05-26] VITALS (58 sets, daily range): BP systolic 100–125; BP diastolic 51–68; PULSE 25–127; RESP 20; TEMP 36.8–37.5; O2SAT 78–100; BMI 43.7
--- NOTE | ~2024-05-26 | XR_ITS ---
EXAMINATION: XR chest 1V portable 05/26/2024 14:17 INDICATION: 31 weeks PROCEDURE: AP portable chest COMPARISON: 02/16/2024 FINDINGS: The lungs are clear. The cardiomediastinal silhouette is within normal limits. There are no pleural effusions. There is no pneumothorax suspected. IMPRESSION: 1: NO ACUTE CARDIOPULMONARY DISEASE. Reviewed, dictated and finalized at location A. 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
--- OUTSIDE RECORDS SUMMARY | 2024-05-26 11:48 | XMS_ITS | Data Portability ---
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 Discussed plan. [email or web address] Not available 04/05/2024 17:37:01 05/03/2024 05/03/2024 Patient is __28_weeks . Discussed plan. [email or web address] Not available 05/03/2024 10:15:25 05/17/2024 05/17/2024 Patient is _30__weeks . Discussed plan. [email or web address] Not available 05/17/2024 11:19:33 Plan of Treatment [...] obstetr ic, follow- up 2023 024 [email or web address] [address], [address], [place], [address], 04/05/2024 22:38:15 [place], obstetr ic, follow- up 2024 025 [email or web address] [place], [address], [address], [place], [address], 05/17/2024 12:52:06 Medication Orders None recorde d. Patient TargetsNo targets recorded. Patient InstructionsNo instructions recorded. Reason for Referral None Reported. Results Created Date Observation Date Name Description Value Unit Range Abnormal Flag Note LastModifiedBy Organization Detail LastModifiedTime 03/10/20 24 03/10/2024 HEMAT OCRIT (HCT) HCT 38.6 % (based on docume nted legal sex) 34.0-4 5.0 Not Available [facility] (Lab) [address], [place], [address], 03/11/2024 15:31:00 03/10/20 24 03/10/2024 HEMOG LOBIN (HGB) HGB 12.2 g/dL (based on docume nted legal sex) 11.6-1 5.4 Not Available [facility] (Lab) [address], [place], [address], 03/11/2024 15:31:01 03/10/20 24 03/10/2024 GTT - GESTA SHELBY L SCREE N, ACOG OB glucose, 1 hour screen 97 mg/dL 70-135 Not Available [facility] (Lab) [address], [place], [address], 03/11/2024 15:31:01 03/10/20 24 03/10/2024 HIV 1/2 ANTIG EN/AN TIBOD Y, REFLE X CONFI RMATI ON HIV antigen/anti body Nonrea ctive nonrea ctive HIV-1 antig en and HIV-1 /HIV- 2 antib odies were not detec ange. No labor atory evide nce of HIV infec tion. Not Available [facility] (Lab) [address], [place], [address], 03/11/2024 15:31:02 03/10/20 24 03/10/2024 RPR SCREE N, REFLE X TITER /CONF IRMAT ION RPR screen Nonrea ctive nonrea ctive Not Available [facility] (Lab) [address], [place], [address], 03/11/2024 15:31:02 05/17/19 25 05/17/2024 GTT - GESTA SHELBY L SCREE N, ACOG OB glucose, 1 hour screen 109 mg/dL 70-135 Not Available [facility] (Lab) [address], [place], [address], 05/18/2024 11:06:04 05/17/19 25 05/17/2024 HEMOG LOBIN (HGB) HGB 11.8 g/dL (based on docume nted legal sex) 11.6-1 5.4 Not Available [facility] (Lab) [address], [place], [address], 05/18/2024 11:06:05 05/17/19 25 05/17/2024 HEMAT OCRIT (HCT) HCT 36.5 % (based on docume nted legal sex) 34.0-4 5.0 Not Available [facility] (Lab) [address], [place], [address], 05/18/2024 11:06:05 05/17/19 25 05/17/2024 HIV 1/2 ANTIG EN/AN TIBOD Y, REFLE X CONFI RMATI ON HIV antigen/anti body Nonrea ctive nonrea ctive HIV-1 antig en and HIV-1 /HIV- 2 antib odies were not detec ange. No labor atory evide nce of HIV infec tion. Not Available [facility] (Lab) [address], [place], [address], 05/18/2024 11:06:06 05/17/19 25 05/17/2024 RPR SCREE N, REFLE X TITER /CONF IRMAT ION RPR screen Nonrea ctive nonrea ctive Not Available [facility] (Lab) [address], [place], [address], 05/18/2024 11:06:06 03/10/20 24 03/10/2024 [place], obste tric, 2nd or 3rd trime ster No observ [facility]ion [email or web address] [address], [place], [address], 03/10/2024 17:37:07 03/10/20 24 03/10/2024 US, obste tric, 2nd or 3rd trime ster No observ ation record ed. REECE [address], [place], [address], 03/15/2024 11:51:47 04/05/20 24 04/05/2024 US, obste tric, follo w-up No observ ation record ed. [email or web address] [place] [address], [place], [address], 04/05/2024 16:24:38 04/05/20 24 04/05/2024 US, obste tric, follo w-up No observ ation record ed. [email or web address] [address], [place], [address], 04/05/2024 21:57:02 05/17/19 25 05/17/2024 US, obste tric, follo w-up No observ ation record ed. [email or web address] [place] [address], [place], [address], 05/17/2024 13:51:17 05/17/19 25 05/17/2024 US, obste tric, follo w-up No observ ation record ed. [email or web address] [address], [place], [address], 05/17/2024 12:35:24 Result Notes None recorded. Problems Name Problem SNOMED Code Status Onset Date Resolution Date Notes Provider Name and Address Organization Details Recorded Time Contrace ption care manageme nt Completed 201709/10/2021 Encounte r for contrace ptive manageme nt, unspecif ied;Jay rded Elsewher e: No Locat ion: [facility] S ource: EHR Clinic Coordinator karin: N Practi ce ID: 0001 Elmer lable Time: 11:30:00 AM Mehnaz Gomez [facility] 2 17:49:57 Premenst rual tension syndrome 84850839 Completed 201209/10/2021 Premenst rual tension syndrome s;Record ed Elsewher e: No Locat ion: [facility] S ource: EHR Clinic Coordinator karin: N Fabyti ce ID: 0001 Elmer lable Time: 09:30:00 AM Mehnaz Gomez [facility] [address] 17:49:[address] Concept Completed 201409/10/2021 Encntr for routine child health exam w/o abnormal findings ;Recorde d Elsewher e: No Locat ion: [facility] S ource: EHR Clinic Coordinator karin: N Fabyti ce ID: 0001 Elmer lable Time: 02:45:00 PM Mehnaz Gomez [facility] [address] 17:49:[address] Concept Completed 201409/10/2021 Encntr for loop tender exam (general ) (routine ) w/o abn findings ;Practic e ID: 0001 Mehnaz Gomez [facility] 2 17:49:57 Vaginola bial hernia Completed 201809/10/2021 Other specifie d noninfla mmatory disorder s of vagina;P ractice ID: 0001 Mehnaz Jason wall [facility] 2 17:49:57 Syphilis test finding 564154213 Completed 201809/10/2021 Encounte r for STD screenin g;Record ed Elsewher e: No Locat ion: [facility] S ource: EHR Clinic Coordinator karin: N Bay ce ID: 0001 Elmer lable Time: 03:30:00 PM Mehnaz Gomez [facility], [facility] 2 17:49:57 Pregnanc y 85280827 Active 2023 Haleyjuancarlos Parker [facility], [facility] 4 11:34:49 Mixed anxiety and depressi ve disorder 565931086 Active no current treatmen t, school related Paulina Conte CNM [address], [place], [address], [facility] 4 12:02:43 Obesity 494387387 Active BMI 40, plan antenata l testing Paulina Conte CNM [address], [place], [address], [facility] 4 12:04:06 Hemoglob in A1c measurem ent Active elevated 5.8 Early 1hr GCT 20wks Penny Burnham [facility], [facility] 4 11:28:47 Hemoglob in A1c measurem ent Active elevated 5.8 Early 1hr GCT 20wks Penny Burnham [facility], [facility] 4 11:28:47 Rubella non-immu ne 228455929 Active MMR PP Penny Burnham [facility], [facility] 4 11:29:35 Rubella non-immu ne 110771980 Active MMR PP Penny Burnham [facility] 4 11:29:35 Velament ous insertio n of umbilica l cord 74329576 Active growth q 4 Paulina Conte CNM [address], [place], [address], [place] [facility] 4 10:42:14 Pain in pelvis 99963795 Active Anshu Sahni MD [address], [place], [address], [place] [facility] 4 17:51:42 Problem Notes None recorded. Procedures Surgical History Date Name Laterality Status Provider Name and Address Organization Details Recorded Time 3 Date of Last Pap Smear completed Haley Parker [facility] 12/15/2023 12:42:14 1 extraction of wisdom tooth completed Mehnaz Gomez [facility] 09/11/2021 14:21:58 Imaging Results Imaging Date Name Status LastModified by Organiz ation Details LastModified Time 03/10/2024 US, obstetric, 2nd or 3rd trimester completed [email or web address] [place] [address], [place], [address], 03/10/2024 17:37:07 03/10/2024 US, obstetric, 2nd or 3rd trimester completed REECE [address], [place], [address], 03/15/2024 11:51:47 04/05/2024 US, obstetric, follow-up completed [email or web address] [place] [address], [place], [address], 04/05/2024 16:24:38 04/05/2024 US, obstetric, follow-up completed [email or web address] [address], [place], [address], 04/05/2024 21:57:02 05/17/2024 US, obstetric, follow-up completed [email or web address] [place] [address], [place], [address], 05/17/2024 13:51:17 05/17/2024 US, obstetric, follow-up completed [email or web address] [address], [place], [address], 05/17/2024 12:35:24 Procedure Notes None recorded. Medical Equipment None Reported. Allergies Allergen ID Allergen Name Allergen Category Reaction Reaction Severity Criticality Documentation Date Start Date Code Code System Note Provider Name and Address Organization Details Recorded Time 71801 kiwi fruit extract food Not available Not available Not available 01/19/2024 59207 01 RxNorm Haley Parker [facility] 11:33:49 No known drug [...] Address Organization Details Last Updated DateTime 04/05/2024 533547.467 99 g 121 mm[Hg] 79 mm[Hg] Nayeli Davis [facility] 04/05/2024 17:37:55 Date Recorded Body weight Body mass index (BMI) Body height Systolic blood pressure Diastolic blood pressure Provider Name and Address Organization Details Last Updated DateTime 05/03/2024 628097.0 6036 g 42.4 kg/m2 156.21 cm 116 mm[Hg] 75 mm[Hg] Haley Parker [facility] 5 09:55:48 Date Recorded Body height Body mass index (BMI) Body weight Systolic blood pressure Diastolic blood pressure Provider Name and Address Organization Details Last Updated DateTime 05/17/2024 156.21 cm 42.9 kg/m2 051444.8 3747 g 104 mm[Hg] 69 mm[Hg] Haley Parker [facility] 5 11:01:24 Social History Question Answer Notes LastModified by Organizat ion Details LastModified Time Tobacco Smoking Status Never Smoker Jeanne Sinclair null, [facility] 12/03/2022 09:45:28 Do You Have An Advance Directive? No Information not available 10/20/2021 What Is Your Level Of Alcohol Consumption? None [email or web address] Information not available 12/15/2023 If You Are , What Was Your Level Of Alcohol Consumption Prior To ? Occasional [email or web address] Information not available 12/15/2023 How Many Years Have You Consumed Alcohol? 4 Information not available 10/20/2021 Are You Blind Or Do You Have Difficulty Seeing? No Information not available 09/11/2021 What Is Your Level Of Caffeine Consumption? 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 [id number] Information not available 10/20/2021 Do You Use Any Illicit Or Recreational Drugs? No Marijuana [email or web address] Information not available 12/15/2023 Do You Use Sunscreen Routinely? No Information not available 10/20/2021 How Many Years Have You Smoked Tobacco? 0 Information not available 10/20/2021 Have You Used IV Drugs? No Information not available 10/20/2021 Sex: Unknown Functional Status Question Answer Note LastModified by Organizat ion Details LastModified Time Do you have difficulty walking or climbing stairs? No [email or web address] Information not available 12/03/2022 Are you able to walk? [email or web address] Information not available 09/11/2021 Are you able to care for yourself? Yes [email or web address] Information not available 12/03/2022 Do you have difficulty dressing or bathing? No [email or web address] Information not available 12/03/2022 What is your exercise level? Occasional Information not available 09/11/2021 Mental Status None recorded. Family History Relationship Description Onset Age of this Age Resolved Age Notes LastModified by Organization Details LastModified Time Maternal Grandmother Asthma Not available 2021 14:20:58 Medical History Condition Response Allergies (Food, seasonal, environmental ) Y Other N Breast Cancer N Drug/Latex Allergies/Reactions N Blood Transfusion N Dermatologic Disorders N Lung Disease N Defects or Inherited Disease N Breast Problem N Gestational Diabetes N Hematologic disorders N Anesthesia Complications N History of STI Y Deep Vein Thrombosis N Polycystic ovary syndrome N Anxiety Disorder N Autoimmune disease N Arthritis N Infertility N Polyps N Acid Reflux (GERD) N History of abnormal pap N Cancer N Stroke N Varicosities N Neurologic/Epilepsy N Endometriosis N High Cholesterol N Headaches N Fibromyalgia N Kidney Disease N Heart Problems N Kidney or Bladder Problems N Thyroid Problems N GI Problems N Eating Disorder [...] SNOMED-CT Code Diagnosis ICD10 Code Diagnosis Note [id number] Cheryl Whalen , [facility] [address] [address] 09/11/2021 13:45:49 09/11/2021 14:57:34 Gynecologic examination 32868387 Z01.419 Take Calcium with Vitamin D 1200mg [...] nseled HPV vaccinatio n-can obtain at health dept/[facility] ee/[facility] in [facility]. Sexually t ransmitted infectious disease 9392588 A64 Wants serum/pap std testing [id number] DAYDAY [facility] [address] [address] 10/20/2021 09:31:04 10/20/2021 10:20:24 Vaginitis 94759864 N76.0 A64 Feels like she has an odor but unsure.Has n't gotten smell entirely back after covid.Part ner treatment initiated. Not SA since she took meds.TOMAS sent Will await results prior to determinin g treatment. Time spent in visit is a total of 15 mins with at least 50% of visit consisting of counseling and review of plan of care. Geographic tongue 127604 01 K14.1 Mouth wash ordered to manage this issue.Refe r to PCP for further evaluation [id number] DAYDAY Denney [place] [address] [address] 12/03/2022 09:45:06 12/03/2022 10:49:31 Gynecologic examination 05029628 Z01.419 Take Calcium with Vitamin D 1200mg [...] STI panel ordered Venereal d isease screening 877295914 Z11.3 Goiter 6838399 E04.9 possible goiter notedthyro id panel orderedf/u with PCP for for thyroid u/s / further management Weight increased 2174970 00 R63.5 Sexually t ransmitted infectious disease 2478253 A64 636885 DAYDAY Denney [place] [address] [place] [address] 08/12/2023 15:13:44 08/12/2023 15:32:18 Venereal disease screening 318142816 Z11.3 gc/ct/tric h testing sentHIV/He p B&C/Syphil is testing ordered per pt requestsaf e sexual practices discussedq uestions answered Time spent in visit is a total of 15 mins with at least 50% of visit consisting of counseling and review of plan of care. Sexually t ransmitted infectious disease 6957161 A64 [id number] Sanjuanita Grande [place] [address] [place] [address] 12/15/2023 11:48:35 12/15/2023 12:21:56 [id number] Paulina Conte CNM [place] [address] [place] [place] [address] 12/15/2023 11:52:34 12/15/2023 13:10:38 Amenorrhea 11325605 N91.2 reviewed office precaution sf/u 12 weeks new ob and first lookpap up to date2 cm right cyst Venereal d isease screening 139524558 Z11.3 [id number] [facility] [address],[place] [address] 01/19/2024 10:52:55 01/19/2024 11:38:36 screening 632261705 Z36.82 Z3A.13 [id number] Paulina Conte [facility] [address],[place] [address] 01/19/2024 10:54:12 01/19/2024 12:25:18 Routine care 573332898 Z34.90 [id number] Paulina Conte [facility] [address],[place] [address] 02/16/2024 15:38:01 02/16/2024 16:27:04 Expiratory wheezing 9029076 R06.2 Gestation period, 17 weeks 83133862 Z3A.17 [id number] [facility] [address],[place] [address] 03/10/2024 09:11:49 03/10/2024 10:36:06 screening for malformation 495908411 Z36.3 Z3A.20 [id number] Paulina Conte [facility] [address],[place] [address] 03/10/2024 09:14:29 03/10/2024 10:53:17 Gestation period, 20 weeks 13115655 Z3A.20 [id number] [facility] [address] [place] [address] 04/05/2024 15:28:46 04/05/2024 16:24:57 screening 747626422 Z36.2 O43.122 Z3A.24 [id number] Anshu Sahni MD [place] [address],[place] [address] 04/05/2024 15:30:05 04/05/2024 17:59:54 Routine care 664811335 Z34.90 [id number] Paulina Conte [facility] [address],[place] [address] 05/03/2024 09:44:44 05/03/2024 10:17:48 Routine care 833057451 Z34.90 [id number] [facility] [address],[place] [address] 05/17/2024 09:46:25 05/17/2024 10:37:31 Velamentous insertion of umbilical cord 06251291 O43.123 O99.213 Z3A.30 [id number] Paulina Conte [facility] [address],[place] [address] 05/17/2024 09:47:30 05/17/2024 11:23:40 Gestation period, 30 weeks 10127778 Z3A.30 continue vitamin Health Concerns Section Related Observation LastModified by Organization Detai ls LastModified Time None Recorded Concern Status LastModified by Organization Details LastModified Time None Recorded Advance Directives Directive N: Payers Encounter Date Sequence Insurance Name Policy Number Policy Laguna Covered Member ID Laguna Member ID Guarantor Name 04/05/2024 2 [place] [id number] Dejoise I Charlene [id number] Or I Kegler 04/05/2024 1 [employer] ([place]) [id number] [id number] 1 Orah I Kegler 04/05/2024 2 [place] [id number] Dejoise I Charlene [id number] Orah I Kegler 04/05/2024 1 [employer] (PPO) [id number] [id number] 1 Orah I Kegler 05/03/2024 2 [place] [id number] Dejoise I Charlene [id number] Orah I Kegler 05/03/2024 1 [employer] (PP[place]) [id number] Nadira Gomes [id number] 1 Orah I Kegler 05/17/2024 2 [place] [id number] Dejoise I Charlene [id number] 17 Or I Kegler 05/17/2024 1 [employer] (PPO) [id number] Nadira Gomes [id number] 1 Orah I Kegler 05/17/2024 2 [place] [id number] Dejoise I Charlene [id number] Or I Kegler 05/17/2024 1 [employer] (PP[place]) [id number] Nadira Gomes [id number] 1 Or Kaylee Taylorgler OBGyn Episode Ob Episode Information Episode Created Date Number of Fetuses Patient Bloodtype Patient rh Status Prepregnancy Weight lbs Domestic Partner Domestic Partner Phone Father Name Wood Experimental Mechanic Status 01/19/20 24 1 A Positive 204 Ahmad Nijme OPEN Fetus Data First Name Last Name Admitted to NICU Weight (g) Sex Living Outcome Pediatric Complications Fetus ID Race Codes Race Delivery Type [id number] Problems Problem Notes Problem Name Start Date End Date Resolution Snomed Code Not e Pain in pelvis 88017967 Hemoglobin A1c measurement 36603138 elevated 5.8 Ea rly 1hr GCT 20wks Mixed anxiety and depressive disorder 350795786 no curre nt treatment, school related Rubella non-immune 359467656 M MR PP Obesity 918967675 BMI 40, pl an testing Velamentous insertion of umbilical cord 79792240 growth q 4 Eulalio Calculation Initial Eulalio [...] Type Weight in lbs Pre/Post Dialysis Refused 217.117429208328 BP Diastolic BP Location Tested BP Systolic [...] Type Weight in lbs Pre/Post Dialysis Refused 215.475284345952 BP Diastolic BP Location Tested BP Systolic [...] Type Weight in lbs Pre/Post Dialysis Refused 221.760597762888 BP Diastolic BP Location Tested BP Systolic [...] Type Weight in lbs Pre/Post Dialysis Refused 227.422449173414 BP Diastolic BP Location Tested BP Systolic [...] Type Weight in lbs Pre/Post Dialysis Refused 228.523957722470 BP Diastolic BP Location Tested BP Systolic [...] Type Weight in lbs Pre/Post Dialysis Refused 231.604390675242 BP Diastolic BP Location Tested BP Systolic BP Type 69 104 Fetus Heart Rate Present Fetus Movement A Yes Comments Patient is having back pain, leg numbness, swelling, and nausea. footling breech, spinning babies exercises, efw 25%, rsv at 32 weeks, bung sewer rec given, education and precautions f/u 2 weeks Menstrual History Last Menstrual Date Menses Monthly On Bcp Conception Prior Menses Frequency Hcg Plus Date Menarche Onset Age 0610/20/2023 true Genetic Screening And Infection History Question Response Note Mental Retardation/Autism false Patient's Age Will Be 35 Years Or Older At Estim ated Date of Delivery false Thalassemia (Portuguese, Czech, Mediterranean, Or Background): MCV < 80 false Neural Tube Defect (Meningomyelocele, Spina Bifi da, Or Anencephaly) false Congenital Heart Defect false Down Syndrome false Jeremísa-Sachs (eg, Restoration, Cajun, Cypriot-Midland) f alse Awais Disease false Sickle Cell Disease Or Trait () false Hemophilia Or Other Blood Disorders false Muscular Dystrophy false Cystic Fibrosis false Macomb's Chorea false Intellectual Disability/Autism false If Yes, [...]
--- NOTE | 2024-05-26 12:30 | OBADM ---
This patient, Dontrell Campuzano, admitted to the OB room 116 for observation. Patient/family oriented to hospital policies and general routines including ID bracelet, bed and alarms, visiting hours, pain management, procedures, bathroom and other care routines, personal items, smoking policy, room service/diet, and visiting hours. Patient/Family are encouraged to report perceived risks to care and to ask questions if they do not understand what they are told or what they should do.
[2024-05-26] MEDS: DEXTROSE 5%/LACTATED RINGERS 1,000 ML 999 ML IV CONT (12:59)
[2024-05-26 13:00] LABS: Influenza A QL RT-PCR Positive (Negative); Influenza B QL RT-PCR Negative (Negative); RSV RNA, RT-PCR Negative (Negative); SARS-CoV-2 RNA PCR Negative (Negative)
[2024-05-26] MEDS: ONDANSETRON INJ 4 MG/2 ML VIAL IV PUSH (13:03)
[2024-05-26 13:13] LABS: Strep Group A RT-PCR NOT DETECTED (Negative)
[2024-05-26] MEDS: ACETAMINOPHEN 500 MG TABLET 1000 MG PO (13:31)
--- NOTE | 2024-05-26 13:45 | PC.NURSE ---
Pao Conte CNM also informed pt was positive for Influenza A.
--- NOTE | 2024-05-26 13:45 | PC.NURSE ---
Pao Conte CNM informed of tachycardia, IV bolus infusing, discussed pt's cough and c/o chest discomfort with deep breaths and coughing, mid back pain, generalized discomfort, and breath sounds slightly decreased in RLL. To continue D5LR at 150 ml/hr and chest x-ray.
[2024-05-26] MEDS: DEXTROSE 5%/LACTATED RINGERS 1,000 ML 150 ML IV CONT (14:19)
--- NOTE | 2024-05-29 16:49 | PM.OBTRLD ---
OB - Triage/Final Diagnosis Visit Information Date of evaluation: 05/26/24 Reason for evaluation: other (decreased movement, flu) Comments/Additional reasons for admission: I have assessed the risk for this patient, Dontrell Campuzano, and determined that she would benefit from observation care. Evaluation Laboratory results: Laboratory Tests 05/26/24 05/26/24 12:15 12:44 Influenza A (RT-PCR) Positive A Influenza B (RT-PCR) Negative RSV (RT-PCR) Negative SARS-CoV-2 RNA (RT-PCR) Negative Group A Strep (PCR) Not detected
== END 2024-05-26 17:09 | disposition home or self-care (01) ==
PROVIDERS: Admitting Provider Obstetrics & Gynecology; PCP Family Medicine; Referring Provider Advanced Practice Midwife; Visit Provider Obstetrics & Gynecology
DX: O36.8130 Decreased fetal movements, third trimester, not applicable or unspecified (principal); O99.513 Diseases of the respiratory system complicating pregnancy, third trimester; J10.1 Influenza due to other identified influenza virus with other respiratory manifestations; Z3A.31 31 weeks gestation of pregnancy; Z20.822 Contact with and (suspected) exposure to COVID-19
CPT/HCPCS: 71045; 87637; 87651; 96361; 96374; A9270; G0378; G0379; J2405; J7121

== ENCOUNTER 2024-05-27 22:19 | Observation (INO) | payer OTHER, SELFPAY ==
[2024-05-27] VITALS (11 sets, daily range): BP systolic 105–112; BP diastolic 53–57; PULSE 104–116; TEMP 38.1; O2SAT 97–99; BMI 43.5
--- OUTSIDE RECORDS SUMMARY | 2024-05-27 22:28 | XMS_ITS | Data Portability ---
Author Organization [facility] Address [address] [place] [address] [place] [address] Care Team Providers Care Afterschool Name Role Phone ARCHIEEYAL JARRETT Primary Care Provider Assessment Encounter Date Assessment Date Assessment LastModified by Organization Details LastModified Time 04/05/2024 04/05/2024 Patient is ___weeks . Discussed plan. [email or web address] Not available 04/05/2024 17:37:01 05/03/2024 05/03/2024 Patient is __28_weeks . Discussed plan. Not available 05/03/2024 10:15:25 05/17/2024 05/17/2024 Patient is _30__weeks . Discussed plan. [email or web address] Not available 05/17/2024 11:19:33 Plan of Treatment [...] obstetr ic, follow- up 2023 024 [email or web address] [place], [address], [place], [address], 04/05/2024 22:38:15 [place], obstetr ic, follow- up 2024 025 [email or web address] [place], [address], [address], [place], [address], 05/17/2024 12:52:06 Medication Orders None recorde d. Patient TargetsNo targets recorded. Patient InstructionsNo instructions recorded. Reason for Referral None Reported. Results Created Date Observation Date Name Description Value Unit Range Abnormal Flag Note LastModifiedBy Organization Detail LastModifiedTime 03/10/20 24 03/10/2024 HEMAT OCRIT (HCT) HCT 38.6 % (based on docume nted legal sex) 34.0-4 5.0 Not Available [facility] (Lab) [address] [facility] [address], [place], [address], 03/11/2024 15:31:00 03/10/20 24 03/10/2024 HEMOG LOBIN (HGB) HGB 12.2 g/dL (based on docume nted legal sex) 11.6-1 5.4 Not Available [facility] (Lab) [address], [place], [address], 03/11/2024 15:31:01 03/10/20 24 03/10/2024 GTT - GESTA SHELBY L SCREE N, ACOG OB glucose, 1 hour screen 97 mg/dL 70-135 Not Available [facility] (Lab) [address], [place], [address], 03/11/2024 15:31:01 03/10/20 24 03/10/2024 HIV 1/2 ANTIG EN/AN TIBOD Y, REFLE X CONFI RMATI ON HIV antigen/anti body Nonrea ctive nonrea ctive HIV-1 antig en and HIV-1 /HIV- 2 antib odies were not detec ange. No labor atory evide nce of HIV infec tion. Not Available [facility] (Lab) [address] [facility] [address], [place], [address], 03/11/2024 15:31:02 03/10/20 24 03/10/2024 RPR SCREE N, REFLE X TITER /CONF IRMAT ION RPR screen Nonrea ctive nonrea ctive Not Available [facility] (Lab) [address] [facility], [place], [address], 03/11/2024 15:31:02 05/17/19 25 05/17/2024 GTT - GESTA SHELBY L SCREE N, ACOG OB glucose, 1 hour screen 109 mg/dL 70-135 Not Available [facility] (Lab) [address] [facility], [place], [address], 05/18/2024 11:06:04 05/17/19 25 05/17/2024 HEMOG LOBIN (HGB) HGB 11.8 g/dL (based on docume nted legal sex) 11.6-1 5.4 Not Available [facility] (Lab) [address] [facility], [place], [address], 05/18/2024 11:06:05 05/17/19 25 05/17/2024 HEMAT OCRIT (HCT) HCT 36.5 % (based on docume nted legal sex) 34.0-4 5.0 Not Available [facility] (Lab) [address] [facility], [place], [address], 05/18/2024 11:06:05 05/17/19 25 05/17/2024 HIV 1/2 ANTIG EN/AN TIBOD Y, REFLE X CONFI RMATI ON HIV antigen/anti body Nonrea ctive nonrea ctive HIV-1 antig en and HIV-1 /HIV- 2 antib odies were not detec ange. No labor atory evide nce of HIV infec tion. Not Available [facility] (Lab) [address] [facility], [place], [address], 05/18/2024 11:06:06 05/17/19 25 05/17/2024 RPR SCREE N, REFLE X TITER /CONF IRMAT ION RPR screen Nonrea ctive nonrea ctive Not Available [facility] (Lab) [address], [place], [address], 05/18/2024 11:06:06 03/10/20 24 03/10/2024 US, obste tric, 2nd or 3rd trime ster No observ ation [facility]. [email or web address] [address], [place], [address], 03/10/2024 17:37:07 03/10/20 24 03/10/2024 US, obste tric, 2nd or 3rd trime ster No observ ation record ed. REECE [address], [place], [address], 03/15/2024 11:51:47 04/05/20 24 04/05/2024 US, obste tric, follo w-up No observ ation record ed. [email or web address] [place] [address], [place], [address], 04/05/2024 16:24:38 04/05/20 24 04/05/2024 US, obste tric, follo w-up No observ ation record ed. [email or web address] [address] [address], [place], [address], 04/05/2024 21:57:02 05/17/19 25 05/17/2024 US, obste tric, follo w-up No observ ation record ed. [email or web address] [place] [address], [place], [address], 05/17/2024 13:51:17 05/17/19 25 05/17/2024 US, obste tric, follo w-up No observ ation record ed. [email or web address] [address], [place], [address], 05/17/2024 12:35:24 05/26/19 25 05/26/2024 XR, chest No observ ation record ed. [address], [place], [address], 05/26/2024 15:33:00 05/26/19 25 05/26/2024 XR, chest No observ ation record ed. [address], [place], [address], 05/26/2024 15:33:00 Result Notes None recorded. Problems Name Problem SNOMED Code Status Onset Date Resolution Date Notes Provider Name and Address Organization Details Recorded Time Contrace ption care manageme nt Completed 201709/10/2021 Encounte r for contrace ptive manageme nt, unspecif ied;Jay rded Elsewher e: No Locat ion: [facility] S ource: EHR Candle Wrapping Machine Operator karin: N Bay ce ID: 0001 Elmer lable Time: 11:30:00 AM Mehnaz [facility] 2 17:49:57 Premenst rual tension syndrome 61185275 Completed 201209/10/2021 Premenst rual tension syndrome s;Record ed Elsewher e: No Locat ion: [facility] S ource: EHR Candle Wrapping Machine Operator karin: N Bay ce ID: 0001 Elmer lable Time: 09:30:00 AM Mehnaz [facility] 2 17:49:[address] Concept Completed 201409/10/2021 Encntr for routine child health exam w/o abnormal findings ;Recorde d Elsewher e: No Locat ion: [facility] S ource: EHR Candle Wrapping Machine Operator karin: N Bay ce ID: 0001 Elmer lable Time: 02:45:00 PM Mehnaz [facility] 2 17:49:[address] Concept Completed 201409/10/2021 Encntr for donor relations officer exam (general ) (routine ) w/o abn findings ;Practic e ID: 0001 Mehnaz Gomez [facility], [facility] 2 17:49:57 Vaginola bial hernia Completed 201809/10/2021 Other specifie d noninfla mmatory disorder s of vagina;P ractice ID: 0001 Mehnaz Gomez [facility], [facility] 2 17:49:57 Syphilis test finding 134129673 Completed 201809/10/2021 Encounte r for STD screenin g;Record ed Elsewher e: No Locat ion: [facility] S ource: EHR Candle Wrapping Machine Operator karin: N Practi ce ID: 0001 Elmer lable Time: 03:30:00 PM Mehnaz Gomez [facility], [facility] 2 17:49:57 Pregnanc y 95384459 Active 2023 Haley Parker [facility], [facility] 4 11:34:49 Mixed anxiety and depressi ve disorder 733543593 Active no current treatmen t, school related Paulina Conte CNM [address], [place], [address], [facility] 4 12:02:43 Obesity 344512795 Active BMI 40, plan antenata l testing Paulina Conte CNM [address], [place], [address], [facility] 4 12:04:06 Hemoglob in A1c measurem ent Active elevated 5.8 Early 1hr GCT 20wks Penny Burnham [facility], [facility] 4 11:28:47 Hemoglob in A1c measurem ent Active elevated 5.8 Early 1hr GCT 20wks Penny Burnham [facility], [facility] 4 11:28:47 Rubella non-immu ne 186136286 Active MMR PP Penny Burnham null, [facility] 4 11:29:35 Rubella non-immu ne 020386649 Active MMR PP Penny Burnham null, [facility] 4 11:29:35 Velament ous insertio n of umbilica l cord 94795322 Active growth q 4 Paulina Conte CNM [address], [place], [address], [facility] 4 10:42:14 Pain in pelvis 13795820 Active Anshu Sahni MD [address], [place], [address], [facility] 4 17:51:42 Problem Notes None recorded. Procedures Surgical History Date Name Laterality Status Provider Name and Address Organization Details Recorded Time 3 Date of Last Pap Smear completed Haley Parker [facility] 12/15/2023 12:42:14 1 extraction of wisdom tooth completed Mehnaz Gomez [facility] 09/11/2021 14:21:58 Imaging Results Imaging Date Name Status LastModified by Organiz ation Details LastModified Time 03/10/2024 US, obstetric, 2nd or 3rd trimester completed efrain [place] [address], [place], [address], 03/10/2024 17:37:07 03/10/2024 US, obstetric, 2nd or 3rd trimester completed REECE Till[address], [place], [address], 03/15/2024 11:51:47 04/05/2024 US, obstetric, follow-up completed allen [place] [address], [place], [address], 04/05/2024 16:24:38 04/05/2024 US, obstetric, follow-up completed [email or web address] [address], [place], [address], 04/05/2024 21:57:02 05/17/2024 US, obstetric, follow-up completed [email or web address] [place] [address], [place], [address], 05/17/2024 13:51:17 05/17/2024 US, obstetric, follow-up completed [email or web address] [address], [place], [address], 05/17/2024 12:35:24 05/26/2024 XR, chest completed [email or web address] [facility] [address] [facility], [place], [address], 05/26/2024 15:33:00 05/26/2024 XR, chest completed [email or web address] [facility] [address], [place], [address], 05/26/2024 15:33:00 Procedure Notes None recorded. Medical Equipment None Reported. Allergies Allergen ID Allergen Name Allergen Category Reaction Reaction Severity Criticality Documentation Date Start Date Code Code System Note Provider Name and Address Organization Details Recorded Time 26595 kiwi fruit extract food Not available Not available Not available 01/19/2024 51112 01 RxNorm Haley Parker [facility] 11:33:49 No known drug allergies Medications [...] Address Organization Details Last Updated DateTime 04/05/2024 719232.467 99 g 121 mm[Hg] 79 mm[Hg] Nayeli Ryan [facility] 04/05/2024 17:37:55 Date Recorded Body weight Body mass index (BMI) Body height Systolic blood pressure Diastolic blood pressure Provider Name and Address Organization Details Last Updated DateTime 05/03/2024 763030.0 6036 g 42.4 kg/m2 156.21 cm 116 mm[Hg] 75 mm[Hg] Haley Parker [facility] 09:55:48 Date Recorded Body height Body mass index (BMI) Body weight Systolic blood pressure Diastolic blood pressure Provider Name and Address Organization Details Last Updated DateTime 05/17/2024 156.21 cm 42.9 kg/m2 561355.8 3747 g 104 mm[Hg] 69 mm[Hg] [facility] 11:01:24 Social History Question Answer Notes LastModified by Organizat ion Details LastModified Time Tobacco Smoking Status Never Smoker [facility] 12/03/2022 09:45:28 Do You Have An Advance Directive? No Information not available 10/20/2021 What Is Your Level Of Alcohol Consumption? None [email or web address] Information not available 12/15/2023 If You Are , What Was Your Level Of Alcohol Consumption Prior To ? Occasional [email or web address] Information not available 12/15/2023 How Many Years Have You Consumed Alcohol? 4 Information not available 10/20/2021 Are You Blind Or Do You Have Difficulty Seeing? No Information not available 09/11/2021 What Is Your Level Of Caffeine Consumption? 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 [id number] Information not available 10/20/2021 Do You Use Any Illicit Or Recreational Drugs? No Marijuana [email or web address] Information not available 12/15/2023 Do You Use Sunscreen Routinely? No Information not available 10/20/2021 How Many Years Have You Smoked Tobacco? 0 Information not available 10/20/2021 Have You Used IV Drugs? No Information not available 10/20/2021 Sex: Unknown Functional Status Question Answer Note LastModified by Organizat ion Details LastModified Time Do you have difficulty walking or climbing stairs? No [email or web address] Information not available 12/03/2022 Are you able to walk? YESWOREST Information not available 09/11/2021 Are you able to care for yourself? Yes [email or web address] Information not available 12/03/2022 Do you have difficulty dressing or bathing? No [email or web address] Information not available 12/03/2022 What is your exercise level? Occasional Information not available 09/11/2021 Mental Status None recorded. Family History Relationship Description Onset Age of this Age Resolved Age Notes LastModified by Organization Details LastModified Time Maternal Grandmother Asthma Not available 2021 14:20:58 Medical History Condition Response Allergies (Food, seasonal, environmental ) Y Other N Drug/Latex Allergies/Reactions N Blood Transfusion N Breast Cancer N Dermatologic Disorders N Lung Disease N [...] SNOMED-CT Code Diagnosis ICD10 Code Diagnosis Note [id number] Cheryl Whalen [facility] [address] [address] 09/11/2021 13:45:49 09/11/2021 14:57:34 Gynecologic examination 17198966 Z01.419 Take Calcium with Vitamin D 1200mg [...] b)Genetic Screen discussedC olon Screen naDexa Screen [facility] naBC: condomsCou nseled HPV vaccinatio n-can obtain at health dept/[facility]. Sexually t ransmitted infectious disease 8482023 A64 Wants serum/pap std testing [id number] Cheryl Whalen [facility] [address] [address] 10/20/2021 09:31:04 10/20/2021 10:20:24 Vaginitis 14960603 N76.0 A64 Feels like she has an odor but unsure.Has n't gotten smell entirely back after covid.Part ner treatment initiated. Not SA since she took meds.TOMAS sent Will await results prior to determinin g treatment. Time spent in visit is a total of 15 mins with at least 50% of visit consisting of counseling and review of plan of care. Geographic tongue 046106 01 K14.1 Mouth wash ordered to manage this issue.Refe r to PCP for further evaluation [id number] DAYDAY Denney [place] [address] [address] 12/03/2022 09:45:06 12/03/2022 10:49:31 Gynecologic examination 34062675 Z01.419 Take Calcium with Vitamin D 1200mg [...] STI panel ordered Venereal d isease screening 217692330 Z11.3 Goiter 0549695 E04.9 possible goiter notedthyro id panel orderedf/u with PCP for for thyroid u/s / further management Weight increased 3723377 00 R63.5 Sexually t ransmitted infectious disease 2416451 A64 [id number] Miya CisnerosGABINOBEL [place] [address],[place] [address] 08/12/2023 15:13:44 08/12/2023 15:32:18 Venereal disease screening 750089788 Z11.3 gc/ct/tric h testing sentHIV/He p B&C/Syphil is testing ordered per pt requestsaf e sexual practices discussedq uestions answered Time spent in visit is a total of 15 mins with at least 50% of visit consisting of counseling and review of plan of care. Sexually t ransmitted infectious disease 3960238 A64 259304 Sanjuanita Grande [place] [address],[place] [address] 12/15/2023 11:48:35 12/15/2023 12:21:56 [id number] Paulina Conte [facility] [address],[place] [address] 12/15/2023 11:52:34 12/15/2023 13:10:38 Amenorrhea 67152581 N91.2 reviewed office precaution sf/u 12 weeks new ob and first lookpap up to date2 cm right cyst Venereal d isease screening 655901985 Z11.3 774750 Sylvia Gomze [place] [address],[place] [address] 01/19/2024 10:52:55 01/19/2024 11:38:36 screening 714814717 Z36.82 Z3A.13 072020 Paulina Conte [facility] [address],[place] [address] 01/19/2024 10:54:12 01/19/2024 12:25:18 Routine care 488852135 Z34.90 804059 [facility] [address],[place] [address] 02/16/2024 15:38:01 02/16/2024 16:27:04 Expiratory wheezing 8255758 R06.2 Gestation period, 17 weeks 26346611 Z3A.17 [id number] Sanjuanita [facility] [address],[place] [address] 03/10/2024 09:11:49 03/10/2024 10:36:06 screening for malformation 009343809 Z36.3 Z3A.20 770157 [facility] [address],[place] [address] 03/10/2024 09:14:29 03/10/2024 10:53:17 Gestation period, 20 weeks 66720477 Z3A.20 408265 [facility] [address],[place] [address] 04/05/2024 15:28:46 04/05/2024 16:24:57 screening 404134239 Z36.2 O43.122 Z3A.24 231177 Anshu Sahni MD [place] [address],[place] [address] 04/05/2024 15:30:05 04/05/2024 17:59:54 Routine care 976037866 Z34.90 [id number] [facility] [address],[place] [address] 05/03/2024 09:44:44 05/03/2024 10:17:48 Routine care 811096418 Z34.90 167994 [facility] [address] [place] [address] 05/17/2024 09:46:25 05/17/2024 10:37:31 Velamentous insertion of umbilical cord 50712577 O43.123 O99.213 Z3A.30 640007 [facility] [address] [place] [address] 05/17/2024 09:47:30 05/17/2024 11:23:40 Gestation period, 30 weeks 68143179 Z3A.30 continue vitamin Health Concerns Section Related Observation LastModified by Organization Detai ls LastModified Time None Recorded Concern Status LastModified by Organization Details LastModified Time None Recorded Advance Directives Directive N: Payers Encounter Date Sequence Insurance Name Policy Number Policy Laguna Covered Member ID Laguna Member ID Guarantor Name 04/05/2024 2 [place] [id number] Dejoise I Charlene [id number] 17 Orah I Kegler 04/05/2024 1 [employer] - [employer] (PPO) [id number] [facility] [id number] 1 Orah I Kegler 04/05/2024 2 [place] [id number] Dejoise I Charlene [id number] 17 Orah I Kegler 04/05/2024 1 [employer] - [employer] (PPO) [id number] [facility] [id number] 1 Orah I Kegler 05/03/2024 2 [place] [id number] Dejoise I Charlene [id number] 17 Orah I Kegler 05/03/2024 1 [employer] - [employer] (PPO) [id number] [facility] [id number] 1 Orah I Kegler 05/17/2024 2 [place] [id number] Dejoise I Charlene [id number] 17 Orah I Kegler 05/17/2024 1 [employer] - [employer] (PPO) [id number] [facility] [id number] 1 Orah I Kegler 05/17/2024 2 [place] [id number] Dejoise I Charlene [id number] 17 Orah I Kegler 05/17/2024 1 [employer] (PPO) [id number] [facility] [id number] 1 Orah I Kegler OBGyn Episode Ob Episode Information Episode Created Date Number of Fetuses Patient Bloodtype Patient rh Status Prepregnancy Weight lbs Domestic Partner Domestic Partner Phone Father Name Fpga Design Engineer Status 01/19/20 24 1 A Positive 204 Ahmad Nijmeh OPEN Fetus Data First Name Last Name Admitted to NICU Weight (g) Sex Living Outcome Pediatric Complications Fetus ID Race Codes Race Delivery Type [id number] Problems Problem Notes Problem Name Start Date End Date Resolution Snomed Code Not e Pain in pelvis 11956837 Hemoglobin A1c measurement 28268360 elevated 5.8 Ea rly 1hr GCT 20wks Mixed anxiety and depressive disorder 519482484 no curre nt treatment, school related Rubella non-immune 714550114 M MR HOYT Obesity 411446106 BMI 40, pl an testing Velamentous insertion of umbilical cord 65368920 growth q 4 Eulalio Calculation Initial Eulalio [...] Ultra Sound Latest Days Gestation 0 0 Pre-sangeetha Flowsheet Flowsheet Date 01/19/2024 Maki Score Blood Edema Fundus Height Fundus Units Glucose Ketones Leukocytes Nitrite Labor Signs Protein Cervic Dilation Cervic Effacement Cervic Station Type Weight in lbs Pre/Post Dialysis Refused 217.820794854108 BP Diastolic BP Location Tested BP Systolic [...] Type Weight in lbs Pre/Post Dialysis Refused 215.980426787335 BP Diastolic BP Location Tested BP Systolic [...] Type Weight in lbs Pre/Post Dialysis Refused 221.167298318762 BP Diastolic BP Location Tested BP Systolic [...] Type Weight in lbs Pre/Post Dialysis Refused 227.036592495103 BP Diastolic BP Location Tested BP Systolic [...] Type Weight in lbs Pre/Post Dialysis Refused 228.718639330975 BP Diastolic BP Location Tested BP Systolic [...] Type Weight in lbs Pre/Post Dialysis Refused 231.945441200650 BP Diastolic BP Location Tested BP Systolic BP Type 69 104 Fetus Heart Rate Present Fetus Movement A Yes Comments Patient is having back pain, leg numbness, swelling, and nausea. footling breech, spinning babies exercises, efw 25%, rsv at 32 weeks, mailroom coordinator rec given, education and precautions f/u 2 weeks Menstrual History Last Menstrual Date Menses Monthly On Bcp Conception Prior Menses Frequency Hcg Plus Date Menarche Onset Age 0610/20/2023 true Genetic Screening And Infection History Question Response Note Mental Retardation/Autism false Patient's Age Will Be 35 Years Or Older At Estim ated Date of Delivery false Thalassemia (Maltese, Tunisian, Mediterranean, Or Background): MCV < 80 false Neural Tube Defect (Meningomyelocele, Spina Bifi da, Or Anencephaly) false Congenital Heart Defect false Down Syndrome false Jeremías-Sachs (eg, Yarsanism, Cajun, Montenegrin-[place]) f alse Awais Disease false Sickle Cell Disease Or Trait () false Hemophilia Or Other Blood Disorders false Muscular Dystrophy false Cystic Fibrosis false Yoana's Chorea false Intellectual Disability/Autism false If Yes, [...]
--- NOTE | 2024-05-27 22:58 | OBADM ---
This patient, Dontrell Campuzano, admitted to the OB room OB Post 117 for observation. Patient/family oriented to hospital policies and general routines including ID bracelet, bed and alarms, visiting hours, pain management, procedures, bathroom and other care routines, personal items, smoking policy, room service/diet, and visiting hours. Patient/Family are encouraged to report perceived risks to care and to ask questions if they do not understand what they are told or what they should do.
[2024-05-27 23:07] LABS: Add Urine Microscopic? YES; Appearance Urine Clear (Clear); Bacteria Urine Rare /hpf; Bilirubin Urine Negative (Negative); Blood Urine Negative (Negative); Color Urine Yellow (Yellow); Glucose Urine UA Negative (Negative); Ketones Urine Negative (Negative); Leukocyte Esterase Ur 2+ LEU/UL (Negative); Need Manual Microscopic Reviewed; Nitrate Urine Negative (Negative); Non Pathogenic Casts 0-2; Protein Urine Trace mg/dL (Negative); RBC Urine 0-2 /hpf (0-2); Specific Grav Ur 1.016 (1.001-1.035); Squamous Epithelial Cell Urine Occasional /hpf (Few); WBC Urine 0-5 /hpf (0-3)
--- NOTE | 2024-05-27 23:25 | PC.NURSE ---
Pt discharged home undelivered in stable condition per order from Dr. Garcia. Discharge instructions explained and given to pt. Pt stated understanding, all qustions and concerns answered. Pt instructed to follow up on wednesday with Dr. garcia/Dg office for U/S to rule out gallbalder issues per dr garcia. Pt ambulated out of department with all belongings, S.O @ pt side.
--- NOTE | 2024-07-02 21:08 | PM.OBTRLD ---
OB - Triage/Final Diagnosis Visit Information Comments/Additional reasons for admission: I have assessed the risk for this patient, Dontrell Campuzano, and determined that she would benefit from observation care. Evaluation Laboratory results: Laboratory Tests 05/27/24 22:31 Urine Color Yellow Urine Appearance Clear Urine pH 7.0 Ur Specific [place] 1.016 Urine Protein Trace Urine Glucose (UA) Negative Urine Ketones Negative Ur Blood (Man) Negative Urine Nitrate Negative Urine Bilirubin Negative Urine Urobilinogen 1.0 Add Ur Microanalysis Reviewed Leukocyte Esterase Rfl 2+ H Urine RBC 0-2 Urine WBC 0-5 Ur Squamous Epith Cells Occasional Urine Bacteria Rare Urine Casts 0-2 Final Diagnosis (1) False labor: Code(s): O47.9 - False labor, unspecified Status: Acute
== END 2024-05-27 23:30 | disposition home or self-care (01) ==
PROVIDERS: Admitting Provider Obstetrics & Gynecology; PCP Family Medicine; Visit Provider Obstetrics & Gynecology
DX: O47.03 False labor before 37 completed weeks of gestation, third trimester (principal); Z3A.31 31 weeks gestation of pregnancy
CPT/HCPCS: 81001; 87086; G0378; G0379

== ENCOUNTER 2024-07-12 00:58 | Inpatient (IN) | payer OTHER, BC, SELFPAY ==
[2024-07-12] VITALS (47 sets, daily range): BP systolic 100–137; BP diastolic 50–122; PULSE 57–93; RESP 16–24; TEMP 36.3–36.8; O2SAT 98–100; BMI 43.9
[2024-07-12] MEDS: ceFAZolin 2 GM/D5W 50 ML 2 GM/50 ML BAG IVPB (01:12)
--- OUTSIDE RECORDS SUMMARY | 2024-07-12 01:15 | XMS_ITS | Data Portability ---
Author Organization [facility] Address [address] [place] [address] Care Team Providers Care Computer Support Specialist Instructor Name Role Phone TRINA GALOIA Primary Care Provider Assessment Encounter Date Assessment Date Assessment LastModified by Organization Details LastModified Time 06/23/2024 06/23/2024 Patient is _35__weeks . Discussed plan. [email or web address] Not available 06/23/2024 11:04:04 07/07/2024 07/07/2024 Patient is __37_weeks . Discussed plan. [email or web address] Not available 07/07/2024 17:07:29 Plan of Treatment Reminders Order Date Submit Date Provider Last Modified By Organization Details Last Modified Time Details Appointments OB ROUTINE 2024 03:45P M Paulina Conte CNM Not available Not available Not available U/S OB BPP 2024 09:30A M ULTRASOUND Not available Not available Not available NST 2024 10:00A M NST SCHEDULE Not available Not available Not available OB ROUTINE 2024 10:30A M Paulina Conte CNM Not available Not available Not available Lab strepto coccus group B, culture , unspeci fied specime n 2024 025 [facility] (Lab), [address], [place], [address], 06/26/2024 15:08:37 Referral None recorde d. Procedures None recorde d. Surgeries None recorde d. Imaging non-str ess test 2024 025 [email or web address] [place], [address], [place], [address], 06/26/2024 09:20:47 US, obstetr ic, biophys ical profile + non-str ess test 2024 025 [email or web address] [place], [address], [place], [address], 06/24/2024 00:58:34 US, obstetr ic, follow- up 2024 025 [email or web address] [address], [address], [place], [address], 06/16/2024 18:02:25 Medication Orders None recorde d. Patient TargetsNo targets recorded. Patient InstructionsNo instructions recorded. Reason for Referral None Reported. Results Created Date Observation Date Name Description Value Unit Range Abnormal Flag Note LastModifiedBy Organization Detail LastModifiedTime 05/17/1905/17/2024 GTT - GIGI Kauffman, ACOG OB glucose, 1 hour screen 109 mg/dL 70-135 Not Available [facility] (Lab) [address] [place], [address], 05/18/2024 11:06:04 05/17/19 25 05/17/2024 HEMOG LOBIN (HGB) HGB 11.8 g/dL (based on docume nted legal sex) 11.6-1 5.4 Not Available [facility] (Lab) [address] [place], [address], 05/18/2024 11:06:05 05/17/19 25 05/17/2024 HEMAT OCRIT (HCT) HCT 36.5 % (based on docume nted legal sex) 34.0-4 5.0 Not Available [facility] (Lab) [address] [place], [address], 05/18/2024 11:06:05 05/17/19 25 05/17/2024 HIV 1/2 ANTIG EN/AN TIBOD Y, REFLE X CONFI RMATI ON HIV antigen/anti body Nonrea ctive nonrea ctive HIV-1 antig en and HIV-1 /HIV- 2 antib odies were not detec ange. No labor atory evide nce of HIV infec tion. Not Available [facility] (Lab) [address], [place], [address], 05/18/2024 11:06:06 05/17/19 25 05/17/2024 RPR SCREE N, REFLE X TITER /CONF IRMAT ION RPR screen Nonrea ctive nonrea ctive Not Available [facility] (Lab) [address], [place], [address], 05/18/2024 11:06:06 06/23/19 25 06/23/2024 CULTU RE: GROUP B STREP SCREE N, REFLE X SUSCE PTIBI LITY result report SEE RESULT S BELOW Test: Cultu re: Group B Strep , Refle x Susce ptibi lity ([facility] ) Speci men Sourc e: Vagin a/Rec jana Speci men Type: Vagin al/Re ctal Speci men Date: 2024 0957 Resul t Date: 025 1406 Resul t Statu s: Final resul t Abnor mal: No Resul ting Lab: [facility] [address] [facility] [address] Tel: CULTU RE ----- ----- ----- --- No Group B strep isola ange at 2 days (rina ctive broth enhan cemen t) Not Available [facility] (Lab) [address], [place], [address], 06/26/2024 15:08:37 05/17/19 25 05/17/2024 US, obste tric, follo w-up No observ ation record ed. [email or web address] [place] [address], [place], [address], 05/17/2024 13:51:17 05/17/19 25 05/17/2024 US, obste tric, follo w-up No observ ation record ed. [email or web address] [address], [place], [address], 05/17/2024 12:35:24 05/26/19 25 05/26/2024 XR, chest No observ ation record ed. [address], [place], [address], 05/26/2024 15:33:00 05/26/19 25 05/26/2024 XR, chest No observ ation record ed. [address], [place], [address], 05/26/2024 15:33:00 05/28/19 25 05/27/2024 non-s tress test No observ ation record ed. [address] [facility] [address], [place], [address], 05/30/2024 09:23:33 06/16/19 25 06/16/2024 US, obste tric, follo w-up No observ ation record ed. [email or web address] [address], [place], [address], 06/19/2024 23:24:27 06/16/19 25 06/16/2024 US, obste tric, follo w-up No observ ation record ed. [email or web address] [place] [address], [place], [address], 06/16/2024 17:56:11 06/16/19 25 06/16/2024 non-s tress test No observ ation record ed. [email or web address] [place] [address], [place], [address], 06/16/2024 18:35:13 06/16/19 25 06/16/2024 non-s tress test No observ ation record ed. [email or web address] [place] [address], [place], [address], 06/16/2024 18:37:29 06/23/19 25 06/23/2024 US, obste tric, bioph ysica l profi le + non-s tress test No observ ation record ed. [email or web address] [place] [address], [place], [address], 06/23/2024 18:37:18 06/23/19 25 06/23/2024 US, obste tric, follo w-up No observ ation record ed. [email or web address] [address], [place], [address], 06/28/2024 11:53:38 06/23/19 25 06/23/2024 non-s tress test No observ ation record ed. [email or web address] [place] [address], [place], [address], 06/23/2024 17:47:09 06/23/19 25 non-s tress test No observ ation record ed. [email or web address] [place] [address], [place], [address], 06/23/2024 18:23:03 Result Notes None recorded. Problems Name Problem SNOMED Code Status Onset Date Resolution Date Notes Provider Name and Address Organization Details Recorded Time Contrace ption care manageme nt Completed 201709/10/2021 Encounte r for contrace ptive manageme nt, unspecif ied;Jay rded Elsewher e: No Locat ion: [facility] S ource: EHR Scroll Machine Operator karin: N Practi ce ID: 0001 Elmer lable Time: 11:30:00 AM Mehnaz Gomez [facility] [place] [facility] 2 17:49:57 Premenst rual tension syndrome 69330958 Completed 201209/10/2021 Premenst rual tension syndrome s;Record ed Elsewher e: No Locat ion: [facility] S ource: EHR Scroll Machine Operator karin: N Bay ce ID: 0001 Elmer lable Time: 09:30:00 AM Mehnaz Gomez [facility] [place] [facility] [address] 17:49:[address] Concept Completed 201409/10/2021 Encntr for routine child health exam w/o abnormal findings ;Recorde d Elsewher e: No Locat ion: [facility] S ource: EHR Scroll Machine Operator karin: N Bay ce ID: 0001 Elmer lable Time: 02:45:00 PM Mehnaz wall [facility] 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 2 17:49:57 Vaginola bial hernia Completed 201809/10/2021 Other specifie d noninfla mmatory disorder s of vagina;P mantice ID: 0001 Mehnaz Gomez [facility] [place] [facility] 2 17:49:57 Syphilis test finding 056546831 Completed 201809/10/2021 Encounte r for STD screenin g;Record ed Elsewher e: No Locat ion: [facility] S ource: EHR Scroll Machine Operator karin: N Bay ce ID: 0001 Elmer lable Time: 03:30:00 PM Mehnaz wall [facility] 2 17:49:57 Pregnanc y 04363017 Active 2023 Haley Parker null, [facility] 4 11:34:49 Mixed anxiety and depressi ve disorder 611505881 Active no current treatmen t, school related Paulina Conte CNM [address], [place], [address], [facility] 4 12:02:43 Obesity 403128567 Active BMI 40, plan antenata l testing Paulina Cotne CNM [address], [place], [address], [facility] 4 12:04:06 Hemoglob in A1c measurem ent Active elevated 5.8 Early 1hr GCT 20wks Penny Burnham [facility] [place], [facility] 4 11:28:47 Hemoglob in A1c measurem ent Active elevated 5.8 Early 1hr GCT 20wks Penny Burnham [facility] [place], [facility] 4 11:28:47 Rubella non-immu ne 615693784 Active MMR PP Penny Burnham [facility] [place], [facility] 4 11:29:35 Rubella non-immu ne 876831132 Active MMR PP Pennydakota Burnham [facility] [place], [facility] 4 11:29:35 Velament ous insertio n of umbilica l cord 43703316 Active growth q 4 Paulina Conte CNM [address], [place], [address], [facility] 4 10:42:14 Pain in pelvis 90775202 Active Anshu Sahni MD [address], [place], [address], [facility] 4 17:51:42 Problem Notes None recorded. Procedures Surgical History Date Name Laterality Status Provider Name and Address Organization Details Recorded Time 3 Date of Last Pap Smear completed Haley Parker [facility] 12/15/2023 12:42:14 1 extraction of wisdom tooth completed Mehnaz Gomez [facility] 09/11/2021 14:21:58 Imaging Results Imaging Date Name Status LastModified by Organiz ation Details LastModified Time 05/17/2024 US, obstetric, follow-up completed [address] [place] [address], [place], [address], 05/17/2024 13:51:17 05/17/2024 US, obstetric, follow-up completed [email or web address] [address], [place], [address], 05/17/2024 12:35:24 05/26/2024 XR, chest completed [address] [place] [address], [address], 05/26/2024 15:33:00 05/26/2024 XR, chest completed [address] [place] [address], [address], 05/26/2024 15:33:00 05/27/2024 non-stress test completed [address] [facility] [address] [place] [address], [address], 05/30/2024 09:23:33 06/16/2024 US, obstetric, follow-up completed [email or web address] [address], [place], [address], 06/19/2024 23:24:27 06/16/2024 US, obstetric, follow-up completed [email or web address] [place] [address], [place], [address], 06/16/2024 17:56:11 06/16/2024 non-stress test completed [email or web address] [place] [address] [address], [place], [address], 06/16/2024 18:35:13 06/16/2024 non-stress test completed [place] [address], [place], [address], 06/16/2024 18:37:29 06/23/2024 US, obstetric, biophysical profile + non-stress test completed [facility] [address], [place], [address], 06/23/2024 18:37:18 06/23/2024 US, obstetric, follow-up completed [email or web address] [address] [facility], [place], [address], 06/28/2024 11:53:38 06/23/2024 non-stress test completed [place] [address], [place], [address], 06/23/2024 17:47:09 06/23/2024 non-stress test completed [address] [place] [address], [place], [address], 06/23/2024 18:23:03 Procedure Notes None recorded. Medical Equipment None Reported. Allergies Allergen ID Allergen Name Allergen Category Reaction Reaction Severity Criticality Documentation Date Start Date Code Code System Note Provider Name and Address Organization Details Recorded Time 32013 kiwi fruit extract food Not available Not available Not available 01/19/2024 65646 01 RxNorm Haley Parker [facility] [place] - [facility] 11:33:49 No known drug allergies Medications Name Sig Start Date Stop Date Status Note LastModified by Organization Details LastModified Time nystatin 100,000 unit/mL oral suspension SHAKE LIQUID AND TAKE 5 ML BY MOUTH FOUR TIMES DAILY 06/16 completed Not Available Not Available Not Available metronidazo le 500 mg tablet TAKE 1 [...] Not Available Vitals Date Recorded Body weight Body mass index (BMI) Body height Body height Body mass index (BMI) Body weight Systolic blood pressure Diastolic blood pressure Systolic blood pressure Diastolic blood pressure Provider Name and Address Organization Details Last Updated DateTime 5 893636. 77968 g 42.6 kg/m2 156.21 cm 156.21 cm 42.6 kg/m2 803616. 65 g 127 mm[Hg] 80 mm[Hg] 127 mm[Hg] 80 mm[Hg] Haley Parker [facility] 5 18:34:08 Date Recorded Body weight Body mass index (BMI) Body height Body height Body mass index (BMI) Body weight Systolic blood pressure Diastolic blood pressure Systolic blood pressure Diastolic blood pressure Provider Name and Address Organization Details Last Updated DateTime 5 088849. 77417 g 43.1 kg/m2 156.21 cm 156.21 cm 29.9 kg/m2 30218.3 7 g 108 mm[Hg] 60 mm[Hg] 112 mm[Hg] 73 mm[Hg] Haley Parker [facility] 5 17:45:36 Date Recorded Body height Body mass index (BMI) Body weight Systolic blood pressure Diastolic blood pressure Provider Name and Address Organization Details Last Updated DateTime 07/07/2024 156.21 cm 43.9 kg/m2 868689.8 g 110 mm[Hg] 71 mm[Hg] Haley Parker [facility] 5 16:10:44 Social History Question Answer Notes LastModified by Organizat ion Details LastModified Time Tobacco Smoking Status Never Smoker Jeanne Sinclair [facility] 12/03/2022 09:45:28 Do You Have An Advance Directive? No Information not available 10/20/2021 What Is Your Level Of Alcohol Consumption? None [email or web address] Information not available 12/15/2023 If You Are , What Was Your Level Of Alcohol Consumption Prior To ? Occasional [email or web address] Information not available 12/15/2023 How Many Years Have You Consumed Alcohol? 4 Information not available 10/20/2021 Are You Blind Or Do You Have Difficulty Seeing? No Information not available 09/11/2021 What Is Your Level Of Caffeine Consumption? Moderate [email or web address] Information not available 12/15/2023 How Much Tobacco [...] not available 09/11/2021 What Is Your Occupation? [employer] Information not available 10/20/2021 Are There Any [...] Anxious, Or Unable To Sleep At Night)? [id number] Information not available 10/20/2021 Do You Use Any Illicit Or Recreational Drugs? No Marijuana [email or web address] Information not available 12/15/2023 Do You Use Sunscreen Routinely? No Information not available 10/20/2021 How Many Years Have You Smoked Tobacco? 0 Information not available 10/20/2021 Have You Used IV Drugs? No Information not available 10/20/2021 Sex: Unknown Functional Status Question Answer Note LastModified by Organizat ion Details LastModified Time Do you have difficulty walking or climbing stairs? No Information not available 12/03/2022 Are you able to walk? YESWOREST Information not available 09/11/2021 Are you able to care for yourself? Yes [email or web address] Information not available 12/03/2022 Do you have difficulty dressing or bathing? No [email or web address] Information not available 12/03/2022 What is your [...] SNOMED-CT Code Diagnosis ICD10 Code Diagnosis Note [id number] [facility] [address] [address] 09/11/2021 13:45:49 09/11/2021 14:57:34 Gynecologic examination 01876442 Z01.419 Take Calcium with Vitamin D 1200mg [...] Pap sentSTD Screen sent (serum/swa b)[facility]: condomsCou nseled HPV vaccinatio n-can obtain at health dept/[facility]. Sexually t ransmitted infectious disease 7914522 A64 Wants serum/pap std testing [id number] DAYDAY [facility] [address] [address] 10/20/2021 09:31:04 10/20/2021 10:20:24 Vaginitis 22138183 N76.0 A64 Feels like she has an odor but unsure.Has n't gotten smell entirely back after covid.Part ner treatment initiated. Not SA since she took meds.TOMAS sent Will await results prior to determinin g treatment. Time spent in visit is a total of 15 mins with at least 50% of visit consisting of counseling and review of plan of care. Geographic tongue 971645 01 K14.1 Mouth wash ordered to manage this issue.Refe r to PCP for further evaluation [id number] Miya Cisneros [facility] [place] [address] [address] 12/03/2022 09:45:06 12/03/2022 10:49:31 Gynecologic examination 79699862 Z01.419 Take Calcium with Vitamin D 1200mg [...] STI panel ordered Venereal d isease screening 793301429 Z11.3 Goiter 7932836 E04.9 possible goiter notedthyro id panel orderedf/u with PCP for for thyroid u/s / further management Weight increased 5646013 00 R63.5 Sexually t ransmitted infectious disease 7305860 A64 857893 DAYDAY Denney [place] [address],[place] [address] 08/12/2023 15:13:44 08/12/2023 15:32:18 Venereal disease screening 510293314 Z11.3 gc/ct/tric h testing sentHIV/He p B&C/Syphil is testing ordered per pt requestsaf e sexual practices discussedq uestions answered Time spent in visit is a total of 15 mins with at least 50% of visit consisting of counseling and review of plan of care. Sexually t ransmitted infectious disease 8175511 A64 [id number] Sanjuanita Grande [place] [address],[place] [address] 12/15/2023 11:48:35 12/15/2023 12:21:56 [id number] Paulina Conte CNM [place] [address],[place] [address] 12/15/2023 11:52:34 12/15/2023 13:10:38 Amenorrhea 59176411 N91.2 reviewed office precaution sf/u 12 weeks new ob and first lookpap up to date2 cm right cyst Venereal d isease screening 331674647 Z11.3 [id number] Sylvia Gomez [place] [address],[place] [address] 01/19/2024 10:52:55 01/19/2024 11:38:36 screening 380868942 Z36.82 Z3A.13 525020 [facility] [address],[place] [address] 01/19/2024 10:54:12 01/19/2024 12:25:18 Routine care 642200037 Z34.90 778619 [facility] [address],[place] [address] 02/16/2024 15:38:01 02/16/2024 16:27:04 Expiratory wheezing 6766610 R06.2 Gestation period, 17 weeks 99602762 Z3A.17 053499 [facility] [address],[place] [address] 03/10/2024 09:11:49 03/10/2024 10:36:06 screening for malformation 389623571 Z36.3 Z3A.20 302247 [facility] [address],[place] [address] 03/10/2024 09:14:29 03/10/2024 10:53:17 Gestation period, 20 weeks 56106409 Z3A.20 074491 Sylvia Gomez [place] [address],[place] [address] 04/05/2024 15:28:46 04/05/2024 16:24:57 screening 307151415 Z36.2 O43.122 Z3A.24 909127 Anshu Sahni MD [place] [address],[place] [address] 04/05/2024 15:30:05 04/05/2024 17:59:54 Routine care 132413171 Z34.90 799809 [facility] [address],[place] [address] 05/03/2024 09:44:44 05/03/2024 10:17:48 Routine care 389429264 Z34.90 031155 Sylvia Gomez [place] [address],[place] [address] 05/17/2024 09:46:25 05/17/2024 10:37:31 Velamentous insertion of umbilical cord 39314124 O43.123 O99.213 Z3A.30 869640 [facility] [address],[place] [address] 05/17/2024 09:47:30 05/17/2024 11:23:40 Gestation period, 30 weeks 42042061 Z3A.30 continue vitamin 612745 [facility] [address],[place] [address] 06/02/2024 10:33:38 06/02/2024 11:30:15 Candidiasis 28465691 B37.9 Gestation period, 32 weeks 5464322 Z3A.32 700270 [facility] [address],[place] [address] 06/16/2024 10:59:33 06/16/2024 13:42:41 Velamentous insertion of umbilical cord 99973619 O43.123 O99.213 Z3A.34 587345 [facility] [address],[place] [address] 06/16/2024 11:00:25 06/16/2024 12:29:41 Gestation period, 34 weeks 88427020 Z3A.34 [id number] Haley Parker [place] [address],[place] [address] 06/16/2024 12:37:13 06/19/2024 03:31:02 Maternal obesity complicating , childbirth and the puerperium, antepartum 8995062286 07 O99.210 695030 [facility] [address],[place] [address] 06/23/2024 09:54:47 06/23/2024 10:38:33 Maternal obesity complicating , childbirth and the puerperium, antepartum 0769684556 07 O99.213 Z3A.35 299061 Haley Parker [place] [address],[place] [address] 06/23/2024 09:55:11 06/26/2024 09:20:47 Maternal obesity complicating , childbirth and the puerperium, antepartum 8885027091 07 O99.210 200063 Paulina Conte [facility] [address],[place] [address] 06/23/2024 09:55:25 06/23/2024 11:04:41 screening 023024085 Z36.85 Gestation period, 35 weeks 22403958 Z3A.35 [id number] Paulina Conte [facility] [address],[place] [address] 07/07/2024 15:53:47 07/10/2024 10:36:12 Gestation period, 37 weeks 34841599 Z3A.37 Health Concerns Section Related Observation LastModified by Organization Detai ls LastModified Time None Recorded Concern Status LastModified by Organization Details LastModified Time None Recorded Advance Directives Directive N: Payers Encounter Date Sequence Insurance Name Policy Number Policy Laguna Covered Member ID Laguna Member ID Guarantor Name 06/16/2024 2 [place] [id number] Dejoise I Charlene [id number] 17 Or I Kegler 06/16/2024 1 [employer] - [employer] (PPO) [id number] [id number] 1 Or I Kegler 06/23/2024 2 [place] [id number] Dejoise I Charlene [id number] 17 Or I Kegler 06/23/2024 1 [employer] - [employer] (PPO) [id number] [id number] 1 Or I Kegler 06/23/2024 2 [place] [id number] Dejoise I Charlene [id number] Or I Kegler 06/23/2024 1 [employer] (PPO) [id number] Nadira Gomes [id number] 1 Orah I Kegler 06/23/2024 2 [place] [id number] Dejoise I Charlene [id number] 17 Orah I Kegler 06/23/2024 1 [employer] (PPO) [id number] Nadira Gomes [id number] 1 Orah I Kegler 07/07/2024 2 [place]) [id number] Dejoise I Charlene [id number] 17 Orah I Kegler 07/07/2024 1 [employer] (PP[place]) [id number] Nadira Gomes [id number] 1 Or I Kegler OBGyn Episode Ob Episode Information Episode Created Date Number of Fetuses Patient Bloodtype Patient rh Status Prepregnancy Weight lbs Domestic Partner Domestic Partner Phone Father Name Spice Mixer Status 01/19/20 24 1 [facility] Fetus Data First Name Last Name Admitted to NICU Weight (g) Sex Living Outcome Pediatric Complications Fetus ID Race Codes Race Delivery Type [id number] Problems Problem Notes Problem Name Start Date End Date Resolution Snomed Code Not e Pain in pelvis 39178556 Hemoglobin A1c measurement 80712053 elevated 5.8 Ea rly 1hr GCT 20wks Mixed anxiety and depressive disorder 506923702 no curre nt treatment, school related Rubella non-immune 602747296 M MR PP Obesity 396131179 BMI 40, pl an testing Velamentous insertion of umbilical cord 37532305 growth q 4 Eulalio Calculation Initial Eulalio [...] Type Weight in lbs Pre/Post Dialysis Refused 217.868803622620 BP Diastolic BP Location Tested BP Systolic [...] Type Weight in lbs Pre/Post Dialysis Refused 215.217443679889 BP Diastolic BP Location Tested BP Systolic [...] Type Weight in lbs Pre/Post Dialysis Refused [id number] BP Diastolic BP Location Tested BP Systolic [...] Type Weight in lbs Pre/Post Dialysis Refused 227.737304778466 BP Diastolic BP Location Tested BP Systolic [...] Type Weight in lbs Pre/Post Dialysis Refused 228.278604461117 BP Diastolic BP Location Tested BP Systolic [...] Type Weight in lbs Pre/Post Dialysis Refused 231.606833126681 BP Diastolic BP Location Tested BP Systolic BP Type 69 104 Fetus Heart Rate Present Fetus Movement A Yes Comments Patient is having back pain, leg numbness, swelling, and nausea. footling breech, spinning babies exercises, efw 25%, rsv at 32 weeks, electrical power engineer rec given, education and precautions f/u 2 weeks Flowsheet Date 06/02/2024 Maki Score Blood Edema Fundus Height Fundus Units Glucose Ketones Leukocytes Nitrite Labor Signs Protein Cervic Dilation Cervic Effacement Cervic Station neg none Type Weight in lbs Pre/Post Dialysis Refused 228.414975395062 BP Diastolic BP Location Tested BP Systolic BP Type 74 107 Fetus Heart Rate Present Fetus Movement A Yes Comments Patient is having some nause a and things tastes funny and tongue feels weird. exam reveals oral thrush, rx to pharmacy. +FM, shedule preadmissionflu last week and was in hospital for fluids, precautions and education f/u here in 2 weeks Flowsheet Date 06/16/2024 Maki Score Blood Edema Fundus Height Fundus Units Glucose Ketones Leukocytes Nitrite Labor Signs Protein Cervic Dilation Cervic Effacement Cervic Station Type Weight in lbs Pre/Post Dialysis Refused BP Diastolic BP Location Tested BP Systolic BP Type Fetus Heart Rate Present Fetus Movement Comments Flowsheet Date 06/16/2024 Maki Score Blood Edema Fundus Height Fundus Units Glucose Ketones Leukocytes Nitrite Labor Signs Protein Cervic Dilation Cervic Effacement Cervic Station neg trace Type Weight in lbs Pre/Post Dialysis Refused 229.200578525900 BP Diastolic BP Location Tested BP Systolic BP Type 80 127 Fetus Heart Rate Present Fetus Movement A Yes Comments Patient is having BH contrac tions, discharge and swelling. footling breech, efw 21% start NST for bmi today, reviewed plan, no changes rec, +FM, precautions and education, schedule preadmission Flowsheet Date 06/16/2024 Maki Score Blood Edema Fundus Height Fundus Units Glucose Ketones Leukocytes Nitrite Labor Signs Protein Cervic Dilation Cervic Effacement Cervic Station Type Weight in lbs Pre/Post Dialysis Refused Weight 229.235754697424 BP Diastolic BP Location Tested BP Systolic BP Type 80 127 Fetus Heart Rate Present Fetus Movement Comments Flowsheet Date 06/23/2024 Maki Score Blood Edema Fundus Height Fundus Units Glucose Ketones Leukocytes Nitrite Labor Signs Protein Cervic Dilation Cervic Effacement Cervic Station Type Weight in lbs Pre/Post Dialysis Refused BP Diastolic BP Location Tested BP Systolic BP Type Fetus Heart Rate Present Fetus Movement Comments Flowsheet Date 06/23/2024 Maki Score Blood Edema Fundus Height Fundus Units Glucose Ketones Leukocytes Nitrite Labor Signs Protein Cervic Dilation Cervic Effacement Cervic Station Type Weight in lbs Pre/Post Dialysis Refused Weight 161.909928358776 BP Diastolic BP Location Tested BP Systolic BP Type 73 112 Fetus Heart Rate Present Fetus Movement Comments Flowsheet Date 06/23/2024 Maki Score Blood Edema Fundus Height Fundus Units Glucose Ketones Leukocytes Nitrite Labor Signs Protein Cervic Dilation Cervic Effacement Cervic Station neg none Type Weight in lbs Pre/Post Dialysis Refused 232.30407058117 BP Diastolic BP Location Tested BP Systolic BP Type 60 108 Fetus Heart Rate Present Fetus Movement A Yes Comments Patient is having some contr actions and discharge. GBS collected, bpp 12/01, footling breech, discuss next week with dr. cruz, _FM, nst after visit Flowsheet Date 07/07/2024 Maki Score Blood Edema Fundus Height Fundus Units Glucose Ketones Leukocytes Nitrite Labor Signs Protein Cervic Dilation Cervic Effacement Cervic Station neg trace Type Weight in lbs Pre/Post Dialysis Refused Weight 236.676764918995 BP Diastolic BP Location Tested BP Systolic BP Type 71 110 Fetus Heart Rate Present Fetus Movement A Yes Comments Patient is having contractio ns and swelling. footling breech, reviewed optios, discussed risks of version, I would at this time rec based on location of placenta and first preganncy. pt to think it over will have rn call on wednesday. NST R Menstrual History Last Menstrual Date Menses Monthly On Bcp Conception Prior Menses Frequency Hcg Plus Date Menarche Onset Age 0610/20/2023 true Genetic Screening And Infection History Question Response Note Mental Retardation/Autism false Patient's Age Will Be 35 Years Or Older At Estim ated Date of Delivery false Thalassemia (Citizen Of [place], Citizen Of The [place], Mediterranean, Or Background): MCV < 80 false Neural Tube Defect (Meningomyelocele, Spina Bifi da, Or Anencephaly) false Congenital Heart Defect false Down Syndrome false Jeremías-Sachs (eg, Mandaeism, Cajun, [place]ese-[place]) f alse Awais Disease false Sickle Cell Disease Or Trait () false Hemophilia Or Other Blood Disorders false Muscular Dystrophy false Cystic Fibrosis false Marshall's [place] false Intellectual Disability/Autism false If Yes, [...]
--- NOTE | 2024-07-12 01:24 | P.PNAN_ITS ---
Anes - Initial Pre Proc Eval Procedure: C section Date/Time: 07/12/24 01:24 Surgeon: Anshu Sahni MD Pre Op Diagnosis: Breech presentation Pre Op Diagnosis: leaking fluid Patient Data Age: 24 Gender: F Height: 1.55 m Weight: 105.59 kg Last Vital Signs Pulse Ox 99 07/12/24 01:22 Allergies Allergy/AdvReac Type Severity Reaction Status Date / Time kiwi Allergy Mild Rash Verified 06/30/24 13:40 roses Allergy Mild sneeze Uncoded 06/30/24 13:40 Home Medications ?Medication ?Instructions ?Recorded ?Confirmed ?Type acetaminophen 500 mg capsule 500 mg PO Q6H PRN fever or pain 05/26/24 06/30/24 History vit no.95-ferrous 1 tablet PO DAILY 05/26/24 06/30/24 History fumarate 28 mg-folic acid 800 mcg tablet () albuterol sulfate 90 mcg/actuation inhalation 06/30/24 History aerosol inhaler : gestational age (HEIDI 07/26/24) Patient hx anesthesia problems: none Family hx anesthesia problems: none Results Review: All pre-operative results and documents have been reviewed as part of the pre- operative evaluation. [facility] Past Medical History Medical History Sore throat Family History Family History Sibling Asthma Grandparent Asthma Social History Social History Social History: Single Smoking status: Never smoker Second hand tobacco smoke exposure: No Alcohol intake: current Alcohol use details: Pt only drinks twice a month. Substance use: never Substance use type: marijuana Last use: Pt smokes marijuana occasionally, along has edibles. Do You Feel Safe in your Home?: Yes Lack of Transportation: No Lack of Food: Never True Current Housing: I Have Housing Concerned About Future Housing: No Difficulty Paying Gas/Electric Bills: No Difficulty Paying for Meds: No Currently Unemployed: No Education: Decline to Answer Difficulty w/ Childcare or Family Care: No Living arrangements: with family Occupation/Education: occupation Gender identity (if verbalized by the patient): Female Sexual Orientation (if Verbalized by the Patient): Straight or Heterosexual Spiritual care concerns: No Anes - Eval Final PreProcedure Day of Procedure 07/12/24 01:24 Patient weight: obese Heart: regular rate and rhythm Lungs: normal air movement Airway: Mallampati scale class II Neurological: alert and oriented Last oral intake: 4 hours ASA classification: II Emergent: yes Anesthesia type and monitoring: regional spinal Results Review: All pre-operative results and documents have been reviewed as part of the pre- operative evaluation. Informed Consent: The patient's anesthetic plan and its attendant risks and benefits were discussed with the patient/family/POA. Questions were solicited and answers provided to the satisfaction of the patient/family/POA.
[2024-07-12] MEDS: AZITHROMYCIN 500 MG/NS 250 ML 500 MG/250 ML BAG 250 MG IVPB (01:25)
[2024-07-12 01:28] LABS: Basophils Percent Auto 0.3 % (0.2-1.2); Eosinophils Absolute Auto 0.2 K/mm3 (0-0.3); Eosinophils Percent Auto 1.5 % (0-4.4); Hematocrit 36.5 % (37.0-47.0); Hemoglobin 12.2 g/dL (12.0-15.0); Immature Granulocyte Absolute 0.09 K/mm3 (0.00-0.031); Immature Granulocyte Percent A 0.6 % (0-0.5); Lymphocytes Absolute Auto 2.94 K/mm3 (0.9-3.2); Lymphocytes Percent Auto 19.7 % (18.3-44.2); Mean Corpuscular HGB Conc 33.4 g/dl (32-36); Mean Corpuscular Volume 86.7 fl (80-100); Mean Platelet Volume 12.5 fl (7.4-10.4); Monocytes Absolute Auto 0.8 K/mm3 (0.1-0.6); Monocytes Percent Auto 5.6 % (2.6-8.5); Neutrophils Absolute Auto 10.8 K/mm3 (1.3-6.7); Neutrophils Percent Auto 72.3 % (45.5-73.1); Platelet Count Result 200 k/mm3 (150-375); Red Blood Count 4.21 M/mm3 (4.2-5.4); Red Cell Distribution Width 14.4 % (11.5-14.5); White Blood Count 14.9 K/mm3 (4.5-10.0)
--- NOTE | 2024-07-12 01:31 | P.HP_ITS ---
H&P: HPI History of Present Illness Date/Time: 07/12/24 01:31 Chief Complaint: Term , breech presentation Narrative: This patient is a 24-year-old primipara at 38 weeks gestation with breech presentation and spontaneous rupture of membranes. We have agreed to proceed with primary delivery. She understands risks, benefits, and alternatives. This completed the informed consent process is ready to proceed The patient understands the details of the procedure. The procedure has been explained in detail. She understands the risks. She understands that injuries may occur that result in hospitalization, more surgery, and severe illness. She understands risk of hemorrhage and infection. She denies any chest pain or shortness of breath. She denies any nausea, vomiting, fever, chills. Review of Systems Review of Systems: All systems reviewed & are unremarkable except as noted in HPI and below Constitutional: Constitutional: Denies chills, Denies fatigue, Denies fever(s) and Denies weakness Eyes: Eyes: Denies blurry vision, Denies change in vision, Denies loss of peripheral vision, Denies loss of vision, Denies other visual disturbances and Denies eye pain ENT: Denies vertigo, Denies dizziness, Denies hearing loss, Denies mouth pain, Denies nasal obstruction, Denies neck mass and Denies neck pain Cardiovascular: Cardiovascular: Denies chest pain, Denies diaphoresis, Denies syncope, Denies leg edema and Denies dyspnea Respiratory: Respiratory: Denies chest congestion, Denies cough, Denies hemoptysis, Denies dyspnea and Denies wheezing Gastrointestinal: Gastrointestinal: Denies abdominal pain, Denies constipation, Denies diarrhea, Denies nausea and Denies vomiting Genitourinary: Genitourinary: Denies hematuria, Denies change in libido, Denies nocturia, Denies genital lesions, Denies flank pain and Denies urinary urgency Musculoskeletal: Musculoskeletal: Denies abnormal gait, Denies back pain, Denies myalgias, Denies arthralgias, Denies joint swelling, Denies muscle weakness and Denies neck pain Integumentary/Breasts: Skin/Breast: Denies swelling, Denies breast pain, Denies breast mass, Denies dry skin, Denies nipple discharge, Denies unusual bruising and Denies jaundice Neurologic: Denies Neuro-related abnormal movements, Denies Abnormal speech present, Denies abnormal gait, Denies behavioral changes, Denies confusion, Denies vertigo, Denies dizziness, Denies syncope, Denies loss of vision, Denies memory loss, Denies convulsions and Denies weakness Psychiatric: Psychiatric: Denies abnormal sleep pattern, Denies behavioral changes, Denies change in libido, Denies confusion, Denies depression, Denies anhedonia and Denies memory loss Endocrine: Endocrine: Reports no additional endocrine complaints, Denies change in libido and Denies fatigue Hematologic/Lymphatic: Hematologic/Lymphatic: Reports no additional hematolog ic/lymphatic complaints Allergic/Immunologic: Allergic/Immunologic: Reports no additional allergic/immunologic complaints and Denies wheezing PMFSH Past Medical History Medical History Sore throat Family History Family History Sibling Asthma Grandparent Asthma Social History Social History Social History: Single Smoking status: Never smoker Second hand tobacco smoke exposure: No Alcohol intake: current Alcohol use details: Pt only drinks twice a month. Substance use: never Substance use type: marijuana Last use: Pt smokes marijuana occasionally, along has edibles. Do You Feel Safe in your Home?: Yes Lack of Transportation: No Lack of Food: Never True Current Housing: I Have Housing Concerned About Future Housing: No Difficulty Paying Gas/Electric Bills: No Difficulty Paying for Meds: No Currently Unemployed: No Education: Decline to Answer Difficulty w/ Childcare or Family Care: No Living arrangements: with family Occupation/Education: occupation Gender identity (if verbalized by the patient): Female Sexual Orientation (if Verbalized by the Patient): Straight or Heterosexual Spiritual care concerns: No Meds Home Medications and Allergies Home Medications ?Medication ?Instructions ?Recorded ?Confirmed ?Type acetaminophen 500 mg capsule 500 mg PO Q6H PRN fever or pain 05/26/24 06/30/24 History vit no.95-ferrous 1 tablet PO DAILY 05/26/24 06/30/24 History fumarate 28 mg-folic acid 800 mcg tablet () albuterol sulfate 90 mcg/actuation inhalation 06/30/24 History aerosol inhaler Allergies Allergy/AdvReac Type Severity Reaction Status Date / Time kiwi Allergy Mild Rash Verified 06/30/24 13:40 roses Allergy Mild sneeze Uncoded 06/30/24 13:40 Vital Signs Vital Signs - 24 hr 07/12/24 01:12 07/12/24 01:17 07/12/24 01:22 Pulse Rate Blood Pressure Pulse Oximetry 99 99 99 07/12/24 01:27 07/12/24 01:28 Pulse Rate 87 Blood Pressure 137/122 H Pulse Oximetry 100 Exam Const: General: cooperative, healthy appearing, comfortable and no acute distress Orientation/consciousness: oriented to person, oriented to place and oriented to time HENMT: Head: normal to inspection Ears: external ears normal Face/Nose/Sinus: Normal external nose present and normal facial exam Face and sinus: normal facial exam Eyes: General: appearance normal, both eyes and all related structures Neck: Neck: normal visual inspection, trachea midline and supple Resp: Auscultation: clear to auscultation bilaterally, no crackles, no rales, no rhonchi and no wheezes Cardio: Rate: regular rate Rhythm: regular rhythm Heart sounds: no click, no murmurs and no rubs GI: GI Palp: No abdominal tenderness, No Soft to palpation, No Tenderness to palpation present (GI) and No Palpable mass present Auscultation: normal bowel sounds Skin: General skin exam: normal color and no rashes or lesions noted Neuro: General: oriented to person, oriented to place and oriented to time Extrem: General: normal to inspection, no joint enlargement, no clubbing, cyanosis or edema, no pedal edema and no calf tenderness Psych: Appearance: grossly normal Mental Status: mental status grossly normal Speech and movement: Normal speech and movement present H&P: Results Labs Labs: Short CBC 07/12/24 Range/Units 01:22 WBC 14.9 H (4.5-10.0) K/mm3 Hgb 12.2 (12.0-15.0) g/dL Hct 36.5 L (37.0-47.0) % Plt Count 200 (150-375) k/mm3 Assessment and Plan Assessment and plan (1) Term : Code(s): Z34.90 - Encounter for supervision of normal , unspecified, unspecified trimester Status: Acute (2) Premature rupture of membranes: Code(s): O42.90 - Premature rupture of membranes, unspecified as to length of time between rupture and onset of labor, unspecified weeks of gestation Status: Acute (3) Footling breech presentation: Code(s): O32.8XX0 - Maternal care for other malpresentation of fetus, not applicable or unspecified Status: Acute Plan This patient is a 24-year-old primipara at 38 weeks gestation with breech presentation and spontaneous rupture of membranes. We have agreed to proceed with primary delivery. She understands risks, benefits, and alternatives. This completed the informed consent process is ready to proceed
[2024-07-12] MEDS: ACETAMINOPHEN 500 MG TABLET 1000 MG PO (01:32)
[2024-07-12] MEDS: FAMOTIDINE 20 MG/2 ML VIAL IV PUSH (01:33)
[2024-07-12] MEDS: ONDANSETRON INJ 4 MG/2 ML VIAL IV PUSH (01:33)
--- NOTE | 2024-07-12 01:33 | WPDHPUPDATE1 ---
History and Physical Update Update Date/Time: 07/12/24 01:33 History and Physical has been reviewed, including an updated exam of the patient. There are NO changes in the patient's condition. Risks, benefits, and alternatives have been discussed and questions answered. Patient agrees to proceed with procedure.
[2024-07-12 02:19] LABS: Alanine Aminotransferase 12 U/L (6-35); Albumin Level 3.5 g/dL (3.5-5.1); Alkaline Phosphatase 97 U/L (38-126); Anion Gap 10 mmol/L (4-12); Aspartate Amino Transferase 21 U/L (14-36); Bilirubin,Total 0.5 mg/dL (0.2-1.3); Blood Urea Nitrogen 9 mg/dL (7-17); Calcium 9.4 mg/dL (8.4-10.2); Carbon Dioxide 17 mmol/L (22-30); Chloride 107 mmol/L (98-107); Estimated CRCL calculation 130 ml/min; Estimated Glomerular Filt Rate > 60; Glucose 124 mg/dL (65-110); Potassium 4.2 mmol/L (3.4-5.0); Sodium 134 mmol/L (137-145)
[2024-07-12 02:28] LABS: Syphilis IgG/IgM Antibody Negative (Negative)
[2024-07-12 02:36] LABS: HIV 1/2 Ab P24 Ag Result Negative (Negative)
--- NOTE | 2024-07-12 02:42 | W.PM.OBCSD ---
OB - Delivery Note Procedure Delivery date: 07/12/24 Pre-op diagnosis: Breech Presentation Post-op Diagnosis: Same Procedure Performed: Primary Surgeon: Anshu Sahni MD Anesthesia type: Spinal Description of Procedure/Findings: The patient was taken the operating room.? She was prepped and draped in dorsal supine position with a leftward tilt.? This was done after spinal anesthetic was applied.? A low-transverse skin incision was made and carried down till of the fascia with the knife.? The fascial incision was made with the knife.? The fascial incision was extended laterally with Merino scissors.? The fascia was tented upward superiorly and inferiorly the rectus muscles were dissected off bluntly.? The rectus muscles were the midline.? The preperitoneal fat and peritoneum were dissected open bluntly at the superior aspect of the rectus muscles.? The peritoneal incision was extended superior and inferior with good position of bladder.? The uterine incision was made with a scalpel down to the level of the amniotic cavity.? The amniotic cavity was entered bluntly.? The was delivered.? The cord was clamped and cut and the infant was handed off to waiting pediatric staff.? Cord bloods were obtained.? The placenta was removed manually.? The uterus was exteriorized.? The uterus was cleared of all clots, debris and membranes.? The uterus was closed in 0 Vicryl running lock fashion.? An imbricating over a was placed along the incision line as well.? The uterus was returned to the abdomen.? The gutters were cleared of all clots and debris.? The fascia was closed with 0 Vicryl running fashion.? The subcutaneous tissue was irrigated pinpoint bleeders were cauterized.? The skin was closed with subcuticular absorbable tammi.? The skin incision line was covered with glue.? The patient tolerated the procedure well.? She has taken recovery room in stable condition.? Sponge lap and needle counts were correct x2.?
[2024-07-12 02:46] LABS: Hepatitis B Surface Antigen Negative (Negative)
[2024-07-12] MEDS: OXYTOCIN 30 UNITS/NS 500 ML 30 UNITS/500 ML BAG 125 UNITS IV CONT (03:08)
--- NOTE | 2024-07-12 03:42 | LDADM ---
This patient, Dontrell Campuzano, was admitted to Labor/Delivery/Recovery 120 on 07/12/24 at 00:58. Plans for labor, pain management and were discussed with patient. Patient/family oriented to hospital policies and general routines including ID bracelet, bed and alarms, visiting hours, pain management, procedures, bathroom and other care routines, personal items, smoking policy, room service/diet and guest tray routines, infant security routines, and visiting hours. Patient/Family are encouraged to report perceived risks to care and to ask questions if they do not understand what they are told or what they should do. See OBIX for further documentation.
[2024-07-12] MEDS: LACTATED RINGERS 1,000 ML 125 ML IV CONT (04:02)
--- NOTE | 2024-07-12 04:54 | OBPPTRN ---
Patient transferred to post room #282 via stretcher. Support person present. Oriented to unit, room, information board, rooming in, admission packet and security measures. Patient verbalizes understanding.
[2024-07-12] MEDS: ACETAMINOPHEN 325 MG TABLET 650 MG PO ×3 (06:04→19:40)
[2024-07-12] MEDS: KETOROLAC 15 MG/ML VIAL (*BKC) IV PUSH ×3 (06:04→19:40)
[2024-07-12] MEDS: MULTIVIT/MIN/PREN/FOL AC/IRON TABLET 1 TAB PO (07:47)
[2024-07-12] MEDS: POLYSACCHARIDE IRON COMPLEX 150 MG CAPSULE PO ×2 (07:48→17:50)
[2024-07-12] MEDS: SIMETHICONE 80 MG TAB.CHEW PO ×3 (07:48→17:50)
[2024-07-12] MEDS: DOCUSATE SODIUM 100 MG CAPSULE PO ×2 (07:48→17:50)
[2024-07-12] MEDS: LIDOCAINE 5% PATCH 1 PATCH TRANSDERM (07:48)
[2024-07-12] MEDS: DEXTROSE 5%/0.45% SOD CHL 1,000 ML 125 ML IV CONT (07:49)
--- NOTE | 2024-07-12 09:45 | PC.NURSE ---
Introductions were made, then consulted with patient to assess needs related to . Mother led the conversation with her?plans to feed?her and the?experience so far. Mother plans on exclusively breast feeding and baby has had 2-3 really good feedings per mom. Encouraged understanding of the benefits of skin to skin (demonstrating unwrapping and placing upright on her chest), stimulating with massage touch, changing positions to encourage wakefulness, how to watch for early feeding cues, responsive feeding, feeding on demand (aiming for 8-12 times in 24 hours, about every 2-3 hours), milk production, building/maintaining a milk supply, duration of feeding, signs of adequate intake/output and how to record on the feeding sheet. Mother works well with her infant with encouragement and education. Reviewed positioning and ear, shoulder, hip alignment, supporting the breast to facilitate a deep latch, asymmetrical latch (off-center), leading with the chin with a big, open, wide gape and body close to mother. latched optimally to the [right] breast in [cradle] position for 10 mins and then mother latched baby to her [left] breast in [cross cradle] position . Education given to the mother of how to visualize the suckling (with good rocking jaw motion), swallows (dropping of the lower jaw) and how to listen for drinking at the breast (the ka sound). Infant was [able] to maintain latch without pain to mother protecting the nipple with optimal positioning and latching. Reviewed comfort measures of healing with a warm, wet washcloth to rinse breast, then leave open to air-dry, good handwashing when or touching the breast/nipples to prevent infection. Mother voiced understanding of skin to skin, stimulating with massage touch, responsive feedings, hand expressed colostrum, talking to to encourage if it has been 2 -2.5 hours since the start of the last , to call if infant does not latch, or if there is discomfort with . Resources used for education were facilitated with the [visual educational handouts/ tool/mom and baby guide], Inpatient/outpatient resources provided with business card, feeding sheet, name written on the communication board, and the mom/baby guide. Parents voiced understanding of information, demonstrated learning and will call if there is a request for assistance. Reported to the Primary RN.
[2024-07-12] MEDS: KCL 20 MEQ/D5/0.45% SOD CHL 1,000 ML 125 ML IV CONT (17:54)
[2024-07-12] MEDS: HYDROcodone/acetaminophen (*CRX) 10-325 MG TABLET 1 TAB PO (17:55)
--- NOTE | 2024-07-12 22:09 | PC.NURSE ---
Initiated pumping per pt request. Pt has own mom cozy handsfree pump but requested one of ours to use for now. Educated pt on correct flange fit/size. Pt is currently using a size 24 flange and states it is comfortable. Education given on cleaning of pump parts, frequency of pumping, and storage of expressed breast milk. Pt verbalized understanding and denied any further questions at this time. Encouraged pt to call out when 15 minute pumping session is done to assess how session went.
[2024-07-13 02:40] VITALS: BP 105/61; PULSE 80; RESP 18; TEMP 36.5; O2SAT 100
[2024-07-13] MEDS: HYDROcodone/acetaminophen (*CRX) 10-325 MG TABLET 1 TAB PO ×2 (02:41→16:54)
[2024-07-13] MEDS: KETOROLAC 15 MG/ML VIAL (*BKC) IV PUSH (02:41)
[2024-07-13 03:03] LABS: Basophils Percent Auto 0.3 % (0.2-1.2); Eosinophils Absolute Auto 0.1 K/mm3 (0-0.3); Eosinophils Percent Auto 0.6 % (0-4.4); Hematocrit 31.6 % (37.0-47.0); Hemoglobin 10.4 g/dL (12.0-15.0); Immature Granulocyte Absolute 0.09 K/mm3 (0.00-0.031); Immature Granulocyte Percent A 0.6 % (0-0.5); Lymphocytes Absolute Auto 1.83 K/mm3 (0.9-3.2); Lymphocytes Percent Auto 12.2 % (18.3-44.2); Mean Corpuscular HGB Conc 32.9 g/dl (32-36); Mean Corpuscular Hemoglobin 29.3 pg (26-34); Mean Platelet Volume 12.2 fl (7.4-10.4); Monocytes Absolute Auto 1.3 K/mm3 (0.1-0.6); Monocytes Percent Auto 8.4 % (2.6-8.5); Neutrophils Absolute Auto 11.7 K/mm3 (1.3-6.7); Neutrophils Percent Auto 77.9 % (45.5-73.1); Platelet Count Result 163 k/mm3 (150-375); Red Blood Count 3.55 M/mm3 (4.2-5.4); Red Cell Distribution Width 14.6 % (11.5-14.5); White Blood Count 15.1 K/mm3 (4.5-10.0)
[2024-07-13 08:00] VITALS: PULSE 89; RESP 16; O2SAT 100
[2024-07-13 08:20] VITALS: BP 110/59; PULSE 89; RESP 16; TEMP 36.1; O2SAT 100
--- NOTE | 2024-07-13 08:21 | P.PNOB_ITS ---
OB - PN: Subj Subjective Date/time seen: 07/13/24 08:21 Patient comments: no complaints, pain well controlled, tolerating diet and flatus present OB - PN: Obj Data Labs 07/13/24 02:49 07/12/24 01:22 Labs: Laboratory Results - last 24 hr 07/13/24 02:49 WBC 15.1 H RBC 3.55 L Hgb 10.4 L Hct 31.6 L MCV 89.0 MCH 29.3 MCHC 32.9 RDW 14.6 H Plt Count 163 MPV 12.2 H Immature Gran % (Auto) 0.6 H Neut % (Auto) 77.9 H Lymph % (Auto) 12.2 L [place] % (Auto) 8.4 Eos % (Auto) 0.6 Baso % (Auto) 0.3 Lymph # (Auto) 1.83 [place] # (Auto) 1.3 H Eos # (Auto) 0.1 Baso # (Auto) 0.0 Abs Immat Gran (auto) 0.09 H Absolute Neuts (auto) 11.7 H Absolute Nucleated RBC 0.000 Nucleated RBC % 0.0 OB - PN A/P Plan day: 1 Comments: Post Op LTCS - no problems, routine recovery Time Spent With Patient Time: Total time spent is greater than 50% in coordination of care (as documented) at patient's floor/unit and/or counseling patient: Exam 2 Const: General: cooperative, healthy appearing, comfortable and no acute distress Resp: Auscultation: no crackles, no rales, no rhonchi and no wheezes Cardio: Rhythm: regular rhythm Heart sounds: no click and no murmurs GI: Inspection: non-distended Auscultation: normal bowel sounds Extrem: General: normal to inspection, no pedal edema and no calf tenderness
[2024-07-13] MEDS: MULTIVIT/MIN/PREN/FOL AC/IRON TABLET 1 TAB PO (09:05)
[2024-07-13] MEDS: IBUPROFEN 600 MG TABLET PO ×3 (09:06→20:55)
[2024-07-13] MEDS: SIMETHICONE 80 MG TAB.CHEW PO ×3 (09:06→16:54)
[2024-07-13] MEDS: ACETAMINOPHEN 325 MG TABLET 650 MG PO ×3 (09:06→20:55)
[2024-07-13] MEDS: DOCUSATE SODIUM 100 MG CAPSULE PO ×2 (09:06→16:54)
--- NOTE | 2024-07-13 09:15 | PC.NURSE ---
0850: Latch observed today - infant in cradle position actively nursing. Infant is latched appropriately, mother states there is minimal pain - possibly due to cluster feeding overnight. Cooling gel pads provided and lanolin at bedside. Educated mother on how to use/apply cooling gel pads. Mother has Momcozy at bedside and will call this RN when she is ready to set up her pump and measure for accurate flange size.
[2024-07-13] MEDS: LIDOCAINE 5% PATCH 1 PATCH TRANSDERM (10:18)
--- NOTE | 2024-07-13 13:13 | WPDANLDNPN2 ---
Anes-Prog Note L&D-Neuraxial Date/Time: 07/13/24 13:13 Patient feedback: Patient satisfied with post-operative pain management.
--- NOTE | 2024-07-13 13:13 | WPDANLDPN2 ---
Anes-Prog Note L&D Date/Time: 07/13/24 13:13 Neuro status: Neuro function grossly intact. Cardiovascular status: normal Respiratory status: normal Airway patency: baseline Mental status: baseline Vital Signs: Last Vital Signs Temp 36.1 C L 07/13/24 08:20 Pulse 89 07/13/24 08:20 Resp 16 07/13/24 08:20 BP 110/59 L 07/13/24 08:20 Pulse Ox 100 07/13/24 08:20 O2 Del Method Room Air 07/13/24 08:00 Pain score (VAS): 0 I/O: Intake & Output 07/12/24 07/13/24 07/13/24 23:59 07:59 15:59 Intake Total 0 Output Total 200 Balance -200 Patient feedback: Patient satisfied with anesthetic care.
--- NOTE | 2024-07-13 14:21 | PC.NURSE ---
Breast pump education provided per maternal preference. Personal breast pump brought from home - charbel. Assembled breast pump with parents and pumping was initiated at this time with RN at bedside. Instructions given on cleaning, care, usage, that there should be no pain, pumping schedule for milk production, collection, and storage of human milk. Patient was assessed for correct placement, flange size (24mm), to pump for comfort and nipple stretching/stimulation for adequate milk production. Mother is exclusively but wanted to assure she knew how to work her pump once she was home. Advised mother to only pump 2-3 times daily if she is exclusively to prevent oversupply.
[2024-07-13 22:48] VITALS: BP 91/56; PULSE 84; RESP 18; TEMP 36.3; O2SAT 100
[2024-07-14] MEDS: ACETAMINOPHEN 325 MG TABLET 650 MG PO ×2 (03:33→10:53)
[2024-07-14] MEDS: IBUPROFEN 600 MG TABLET PO ×2 (03:33→10:53)
--- NOTE | 2024-07-14 07:33 | P.PNOB_ITS ---
OB - PN: Subj Subjective Date/time seen: 07/14/24 07:33 Interval history: pp day 2 desires d/c home OB - PN: Obj Data Labs 07/13/24 02:49 07/12/24 01:22 OB - PN A/P Plan day: 2 Plan: routine care and discharge home Time Spent With Patient Time: Total time spent is greater than 50% in coordination of care (as documented) at patient's floor/unit and/or counseling patient: Review of Systems 2 Review of Systems: All systems reviewed & are unremarkable except as noted in HPI and below Exam 2 Const: General: cooperative, healthy appearing and comfortable Chest: Chest palpation & inspection: normal inspection of the chest Resp: Effort & Inspection: normal respiratory effort GI: Other: incision CDI
--- NOTE | 2024-07-14 07:36 | P.DS_ITS ---
DS: Admitting Diagnosis Discharge Date 07/14/24 Admitting Diagnosis footling breech DS: Discharge Diagnosis Discharge Diagnosis (1) Delivery by section: Status: Acute OB - DS: Summary OB Procedures : None OB Procedures Intrapartum: Spontaneous Vag Delivery OB Procedures: : None Peripartum Data Procedures: Procedures Operation Date: 07/12/24 01:00 Actual Procedure Side Surgeon p Section Not Applicable Anshu Sahni MD Time Spent with Patient Time attestation: Total time spent providing and/or coordinating discharge services: Discharge Plan Discharge Attending physician on discharge: Anshu Sahni Discharging Clinician: Paulina Conte Patient Disposition: Home, Self-Care Activity: pelvic rest Diet: regular Patient Instructions: Antibiotic Form Patient Language: Martiniquais Stand Alone Forms: General Discharge Information Follow-up/Referrals: Anshu Sahni MD [Physician] - Paulina Conte CNM [Certified Nurse Grinder Set Up Operator] - (radha 1 week post op garo 4 week ) Discharge Medications: New hydrocodone-acetaminophen 5-325 mg Tablet 1 tablet PO Q3H PRN (Reason: Breakthrough Pain Rated 4-6) 10 Days Qty: 20 0RF ibuprofen 600 mg Tablet 600 mg PO Q6H Qty: 30 0RF Continued PNV cmb#[id number]-ferrous fumarate-FA [] 28 mg iron- 800 mcg tablet 1 tablet PO DAILY albuterol sulfate 90 mcg/actuation HFA aerosol inhaler INHALATION Discontinued acetaminophen 500 mg capsule 500 mg PO Q6H PRN (Reason: fever or pain) Date of admission: 07/12/24 00:58 Primary Care Provider: Griselda,Kandi Horan Admitting Provider: Anshu Sahni Attending physician on admission: Anshu Sahni Condition: Stable
[2024-07-14 07:50] VITALS: BP 107/56; PULSE 78; RESP 16; TEMP 36.6; O2SAT 99
[2024-07-14 08:00] VITALS: PULSE 78; RESP 16; O2SAT 99
--- NOTE | 2024-07-14 10:30 | PC.NURSE ---
Consulted with mother concerning needs and she shared her ability to independently latch infant optimally without pain. He is latched now to the right breast in cradle hold. The latch appears optimal and baby suckles and swallows eagerly. Mother is feeding appropriately for growth of infant and understands stimulating infant to eat if needed. has had appropriate feedings in the last 24 hours meets the outcomes for weight, output, blood sugar and jaundice at this time. Reinforced understanding of milk production, transition of milk, signs of adequate intake, transition of stool, prevention/relief of engorgement, plugged ducts, mastitis, responsive watching for feeding cues, the different methods of stimulating to breastfeed 1-3 hours after the start of the last feeding, community resources, and when to call a provider using the resource of the feeding sheet along with the mom and baby guide. Mother voiced understanding of the information shared, is confident to continue effectively her infant at home, when to call for assistance, denies any additional assistance or education at this time. Reported to the Primary RN.
[2024-07-14] MEDS: DOCUSATE SODIUM 100 MG CAPSULE PO (10:53)
[2024-07-14] MEDS: SIMETHICONE 80 MG TAB.CHEW PO (10:53)
[2024-07-14] MEDS: MULTIVIT/MIN/PREN/FOL AC/IRON TABLET 1 TAB PO (10:53)
[2024-07-14] MEDS: LIDOCAINE 5% PATCH 1 PATCH TRANSDERM (10:59)
--- NOTE | 2024-07-14 11:38 | PC.NURSE ---
Patient is Rubella non-immune. Patient refused the Rubella vaccine. Patient states I do not get vaccines.
[2024-07-15 09:13] VITALS: BP 113/63; PULSE 82; RESP 18; TEMP 36.6; O2SAT 99
[2024-07-17 14:39] LABS: Rubella IgG Antibody < 0.6 IU/ML
== END 2024-07-14 13:45 | disposition home or self-care (01) | DRG 788 ==
LOC: ANHLDR 01:12 → ANHOB2 05:35
PROVIDERS: Admitting Provider Obstetrics & Gynecology; PCP Family Medicine; Referring Provider Advanced Practice Midwife; Visit Provider Advanced Practice Midwife
PROC: 10D00Z1 Extraction of Products of Conception, Low, Open Approach (ICD-10-PCS; CPT 59514; principal; 2024-07-12 01:00)
DX: O32.8XX0 Maternal care for other malpresentation of fetus, not applicable or unspecified (principal); O77.0 Labor and delivery complicated by meconium in amniotic fluid; Z3A.38 38 weeks gestation of pregnancy; Z37.0 Single live birth
CPT/HCPCS: 36415; 80053; 85025; 86593; 86703; 86762; 86850; 86900; 86901; 87340; A9270; G0432; J0456; J0690; J1885; J2274; J2405; J2590; J3480; J7120

== ENCOUNTER 2024-11-06 15:13 | Outpatient (CLI) | payer OTHER, BC, SELFPAY ==
--- OUTSIDE RECORDS SUMMARY | 2024-11-06 15:17 | XMS_ITS | Clinical Summary ---
Author Organization [facility] Address [address] [place] [id number] Care Team Providers Care Upstream Biomanufacturing Technician Name Role Phone Kandi Villalobos MD Primary Care Provider Allergies No known active allergies Encounters Date Type Department Care Team Description 08/19/2024 4:59 AM CDT - 08/19/2024 11:15 AM CDT Emergency [address] [id number] RUQ abdominal pain (Primary Dx) Discharge Disposition: Discharge to home or self care from Last 3 Months Social History Tobacco Use Types Packs/Day Years Used Date Smoking Tobacco: Never Tobacco Cessation:Counseling Given: Not Answered Personal Safety Answer Date Recorded Have you ever been in or are you currently in a harmful physical or emotional relationship or is someone making you feel afraid or unsafe? Denies 08/19/2024 Comments No Sex and Gender Information Value Date Recorded Sex Assigned at Not on file Legal Sex Female 1:57 AM CDT Gender Identity Not on file Sexual Orientation Not on file Obstetrics History Last Filed Vital Signs Vital Sign Reading Time Taken Comments Blood Pressure 120/76 08/19/2024 11:00 AM CDT Pulse 77 08/19/2024 11:00 AM CDT Temperature 36.5 C (97.7 F) 08/19/2024 2:00 AM CDT Respiratory Rate 17 08/19/2024 6:40 AM CDT Oxygen Saturation 95% 08/19/2024 6:35 AM CDT Inhaled Oxygen Concentration - - Weight 97.5 kg (215 lb) 08/19/2024 2:10 AM CDT Height - - Body Mass Index - - Plan of Treatment Health Maintenance Due Date Last Done Comments Cervical Cancer Screening 1999 Depression Screening 1999 Hepatitis C Screening 1999 Varicella Vaccines (1 of 2 - 13+ 2-dose series) 01/11/2012 HPV Vaccines (1 - 3-dose series) 2014 Hepatitis B Screening 2017 Regular Well Visit/Exam 18-64 2017 Influenza Vaccine (#1) 2024 DTaP/Tdap/Td Vaccine (2 - Td or Tdap) 06/23/2033 06/24/2023 Pneumococcal vaccine <65 Aged Out No longer eligible based on patient's age to complete this topic Procedures Procedure Name Priority Date/Time Associated Diagnosis Comments US GALLBLADDER ED 08/19/2024 9:[address] ABDOMEN PELVIS W CONTRAST ED 08/19/2024 5:27 AM CDT POCT HCG, URINE Routine 08/19/2024 5:10 AM CDT TROPONIN T HIGH-SENSITIVITY 2-HOUR Timed 08/19/2024 4:56 AM CDT URINALYSIS, MICROSCOPIC ONLY STAT 08/19/2024 3:26 AM CDT URINALYSIS AND REFLEX TO MICROSCOPIC AND CULTURE STAT 08/19/2024 3:26 AM CDT EGFR STAT 08/19/2024 2:57 AM CDT DIFFERENTIAL AUTO STAT 08/19/2024 2:5 7 AM CDT TROPONIN T HIGH-SENSITIVITY SERIES (BASELINE, 2HR, 4HR, 6HR) STAT 08/19/2024 2:57 AM CDT LIPASE STAT 08/19/2024 2:57 AM CDT COMPREHENSIVE METABOLIC PANEL STAT 08/19/2024 2:57 AM CDT CBC WITH AUTO DIFFERENTIAL STAT 08/19/2024 2:57 AM CDT ECG 12-LEAD STAT 08/19/2024 2:17 AM CDT from Last 3 Months Results * US Gallbladder (08/19/2024 9:57 AM CDT) Anatomical Region Laterality Modality Abdomen N/A Ultrasound 08/19/2024 9:59 AM CDT Narrative 08/19/2024 10:01 AM CDT EXAM DESCRIPTION: US GALLBLADDER REASON FOR STUDY: Acute abdominal pain with cholecystitis suspected on same day CT abdomen. TECHNIQUE: Ultrasound of the gallbladder was performed with grayscale imaging. COMPARISON: 08/19/2024 CT abdomen pelvis FINDINGS: GALLBLADDER: The gallbladder appears unremarkable. No cholelithiasis. No gallbladder wall thickening or pericholecystic fluid. No positive sonographic Crandon sign reported. BILIARY SYSTEM: There is no evidence of intrahepatic or extrahepatic biliary ductal dilatation. The common bile duct measures 0.29 cm in diameter. LIVER: The visualized portion of the liver appears unremarkable. OTHER: No other significant findings. IMPRESSION: Normal gallbladder sonogram. THIS IS AN ELECTRONICALLY VERIFIED FINAL REPORT 08/19/2024 10:01 AM - Electronically signed by Pablo FRANCIS T: Report ID: [id number] Reading Location: [id number] Procedure Note Pablo Vela MD - 08/19/2024 EXAM DESCRIPTION: US GALLBLADDER REASON FOR STUDY: Acute abdominal pain with cholecystitis suspected onsame day CT abdomen. TECHNIQUE: Ultrasound of the gallbladder was performed with grayscaleimaging. COMPARISON: 08/19/2024 CT abdomen pelvis FINDINGS: GALLBLADDER: The gallbladder appears unremarkable. No cholelithiasis. No gallbladder wall thickening or pericholecystic fluid.No positive sonographic Crandon sign reported. BILIARY SYSTEM: There is no evidence of intrahepatic or extrahepaticbiliary ductal dilatation. The common bile duct measures 0.29 cm in diameter. LIVER: The visualized portion of the liver appears unremarkable. OTHER: No other significant findings. IMPRESSION: Normal gallbladder sonogram. THIS IS AN ELECTRONICALLY VERIFIED FINAL REPORT 08/19/2024 10:01 AM - Electronically signed by Pablo Vela M.D. RB T: Report ID: [id number] Reading Location: [id number] us Car[facility] Hered[facility] JUST[facility] IMG US PROCEDURES Final Result * CT Abdomen Pelvis W Contrast (08/19/2024 5:27 AM CDT) Anatomical Region Laterality Modality Body N/A Computed Tomogra phy 08/19/2024 5:30 AM CDT Narrative 08/19/2024 5:35 AM CDT EXAM DESCRIPTION: CT ABDOMEN PELVIS W CONTRAST REASON FOR STUDY: Abdominal pain, acute, nonlocalized Patient came in tonight for abdominal pain. Patient has on 07/12/24. Patient states that she thought she had a belly ache that started on the right upper side and now is in the mid epigastric area and in her right back. Patient states that the pain is sharp and feels constricting. WBC 13.03 TECHNIQUE: CT scan of the abdomen and pelvis performed with intravenous and without oral contrast using helical scanning technique with dynamic intravenous contrast injection. Reconstructed coronal and sagittal MPR images reviewed. All images stored on PACS. Automated exposure control was used as a dose optimization technique for this examination. CONTRAST TYPE/DOSE: 94mL of IOVERSOL 350 MG IODINE/ML INTRAVENOUS SYRINGE injected via intravenous COMPARISON: None. FINDINGS: LOWER CHEST: There is bibasilar atelectasis. LIVER: The liver is normal in attenuation without focal lesion. GALLBLADDER: There is mild circumferential gallbladder wall thickening though this may be secondary to the degree of bladder distention.. There is no significant pericholecystic fluid or inflammatory change. There are no visible gallstones. BILE DUCTS: No intrahepatic or extrahepatic ductal dilatation. PANCREAS: Normal. SPLEEN: Normal size. No focal lesions. ADRENALS: Normal. KIDNEYS/URINARY TRACT: No identified significant cystic or solid masses. No visualized stones. No hydronephrosis or hydroureter. The bladder is collapsed. VASCULATURE: No acute abnormality seen. No abdominal aortic aneurysm. GI: The stomach appears normal. There is no significant small bowel dilation or visible thickening. No gross colonic abnormalities identified. The appendix is normal. PERITONEUM/MESENTERY: No ascites or free air. There is a tiny fat containing periumbilical hernia. LYMPH NODES: There are no enlarged lymph nodes seen by CT size criteria. REPRODUCTIVE: Uterus and adnexae are unremarkable. MUSCULOSKELETAL: No significant abnormality. OTHER: There is a low transverse abdominal wall incision consistent with the patient's history of prior . IMPRESSION: Mild circumferential gallbladder wall thickening could potentially represent early cholecystitis. Consider further evaluation with gallbladder ultrasound. Low transverse abdominal wall incision consistent with the patient's history of prior . THIS IS AN ELECTRONICALLY VERIFIED FINAL REPORT 08/19/2024 5:35 AM - Electronically signed by Concepcion Marcus M.D. SN T: Report ID: [id number] Reading Location: [id number] Procedure Note Concepcion Marcus MD - 08/19/2024 EXAM DESCRIPTION: CT ABDOMEN PELVIS W CONTRAST REASON FOR STUDY: Abdominal pain, acute, nonlocalized Patient came in [facility] for abdominal pain. Patient has on07/12/24. Patient states that she thought she had a belly ache that started on theright upper side and now is in the mid epigastric area and in her right back. Patient states that the pain is sharp and feels constricting. WBC 13.03 TECHNIQUE: CT scan of the abdomen and pelvis performed with intravenousand without oral contrast using helical scanning technique with dynamic intravenous contrast injection. Reconstructed coronal and sagittal MPRimages reviewed. All images stored on PACS. Automated exposure control was usedas a dose optimization technique for this examination. CONTRAST TYPE/DOSE: 94mL of IOVERSOL 350 MG IODINE/ML INTRAVENOUSSYRINGE injected via intravenous COMPARISON: None. FINDINGS: LOWER CHEST: There is bibasilar atelectasis. LIVER: The liver is normal in attenuation without focal lesion. GALLBLADDER: There is mild circumferential gallbladder wall thickeningthough this may be secondary to the degree of bladder distention.. There is no significant pericholecystic fluid or inflammatory change. There are no visible gallstones. BILE DUCTS: No intrahepatic or extrahepatic ductal dilatation. PANCREAS: Normal. SPLEEN: Normal size. No focal lesions. ADRENALS: Normal. KIDNEYS/URINARY TRACT: No identified significant cystic or solid masses.No visualized stones. No hydronephrosis or hydroureter. The bladder is collapsed. VASCULATURE: No acute abnormality seen. No abdominal aortic aneurysm. GI: The stomach appears normal. There is no significant small bowel dilation or visible thickening. No gross colonic abnormalitiesidentified. The appendix is normal. PERITONEUM/MESENTERY: No ascites or free air. There is a tiny fat containing periumbilical hernia. LYMPH NODES: There are no enlarged lymph nodes seen by CT size criteria. REPRODUCTIVE: Uterus and adnexae are unremarkable. MUSCULOSKELETAL: No significant abnormality. OTHER: There is a low transverse abdominal wall incision consistent withthe patient's history of prior . IMPRESSION: Mild circumferential gallbladder wall thickening could potentiallyrepresent early cholecystitis. Consider further evaluation with gallbladderultrasound. Low transverse abdominal wall incision consistent with the patient'shistory of prior . THIS IS AN ELECTRONICALLY VERIFIED FINAL REPORT 08/19/2024 5:35 AM - Electronically signed by Concepcion Marcus M.D. SN T: Report ID: [id number] Reading Location: [place] [address] PROCEDURES Final Result * POCT hCG, urine (08/19/2024 5:10 AM CDT) [facility] HCG, ur, POC Negative Negative Lot Number [id number] QC Backgroud Clear Acceptable QC Control Line Acceptable Urine 08/19/2024 5:10 AM CDT Jennifer Ordonez MD POINT OF CARE TEST ORDER NOHEMI Final Result * Troponin T high-sensitivity 2-hour (08/19/2024 4:56 AM CDT) Pathologist [facility] Trop T hs <6 <=14 ng/L Comment: Interpretive Data For further hscTnT resources including the diagnostic algorithm and an aid in interpretation, copy and paste this link: https://nrl.testcatalog.org/show/hsTrop Current Interpretive Data last revised 2020. Trop T hs delta 0 ng/L ALTAF PETTIT Trop T hs interp Insignificant [facility] Blood 08/19/2024 4:56 AM CDT 08/19/2024 5:03 AM CDT Jennifer Ordonez MD LAB BLOOD ORDERABLES Fin al Result Performing Organization Address [facility] de Phone Number ALTAF [address] [address] * (ABNORMAL) Urinalysis reflex to microscopic and culture Urine (08/19/2024 3:26 AM CDT) Color, ur Yellow Yellow Clarity, ur Clear Clear [facility] Specific gravity, ur 1.026 1.003 - 1.030 [facility] pH, urine 6.5 [facility] Comment: Interpretive Data U rine pH is affected by diet, medications, systemic acid-base disturbances, and renal tubular function. pH may affect urinary stone formation. For example, urine pH below 6.0 may help reduce the tendency for calcium phosphate stones and pH greater than 6.0 may reduce the tendency for uric acid stone formation. Source: [facility] Current Interpretive Data was last revised on 2017 Protein, ur ql Negative Negative [facility] Glucose, ur ql Negative Negative [facility] Ketones, ur Negative Negative [facility] Bilirubin, ur Negative Negative [facility] Blood, ur 1+(A) Negative [facility] Urobilinogen, ur <2.0 <2.0 mg/dL [facility] Nitrite, ur Negative Negative [facility] Leukocyte esterase, ur 1+(A) Negative [facility] UA reflex comment Reflex to microscopic UA will be performed. [facility] Urine 08/19/2024 3:26 AM CDT 08/19/2024 3:43 AM CDT Jennifer Ordonez MD LAB MICROBIOLOGY - GENER AL ORDERABLES Final Result Performing Organization Address [facility] Co de Phone Number ALTAF [address] [place] [address] * (ABNORMAL) Urinalysis, microscopic only (08/19/2024 3:26 AM CDT) [facility] WBC, ur 0-5 0 - 5 /HPF RBC, ur 6-10(A) 0 - 2 /HPF [facility] Epithelial cells, squamous, ur 1-5 0 - 5 /HPF [facility] Bacteria, ur Trace(A) [facility] Mucous, ur Present(A) [facility] Culture Reflex Comment Reflex conditions for urine culture (WBC >10) not met. [facility] Urine 08/19/2024 3:26 AM CDT 08/19/2024 3:43 AM CDT Jennifer Ordonez MD LAB URINE ORDERABLES Fin al Result Performing Organization Address [facility] Co de Phone Number [address] [employer] [place] [address] * Troponin T high-sensitivity series (baseline, 2hr, 4hr, 6hr) (08/19/2024 2:57 AM CDT) [facility] Trop T hs <6 <=14 ng/L Comment: Interpretive Data For further hscTnT resources including the diagnostic algorithm and an aid in interpretation, copy and paste this link: https://nrl.testcatalog.org/show/hsTrop Current Interpretive Data last revised 2020. Blood 08/19/2024 2:57 AM CDT 08/19/2024 3:00 AM CDT Jennifer Ordonez MD LAB BLOOD ORDERABLES Fin al Result Performing Organization Address [facility] Co de Phone Number [address] [place] [address] * eGFR (08/19/2024 2:57 AM CDT) [facility] eGFR >90 >=60 mL/min/1. 73 m2 Comment: Interpretive Data Reference Interval Normal >/= 90 mL/min/1.73m2 Mildly decreased* 60 - 89 mL/min/1.73m2 Mildly to moderately decreased 45 - 59 mL/min/1.73m2 Moderately to severely decreased 30 - 44 mL/min/1.73m2 Severely decreased 15 - 29 mL/min/1.73m2 Kidney Failure < 15 mL/min/1.73m2 *Relative to young adult level Estimated glomerular filtration rate is determined by the 2020 CKD-EPI equation recommended by the National Kidney Foundation (A Unifying Approach to GFR Estimation: Recommendations of the NKF-ASK Task Force on Reassessing the Inclusion of Race in Diagnosing Kidney Disease, JASN 2020). The CKD-EPI equation should not be used for patients with unstable renal function and has not been validated in children and those over 70. Current interpretive data was last reviewed 2021. Blood 08/19/2024 2:57 AM CDT 08/19/2024 3:00 AM CDT us Jennifer Ordonez MD LAB BLOOD ORDERABLES Fin al Result Performing Organization Address City/State/[facility] Co de Phone Number [facility] [address] [facility] Department [place] [address] * (ABNORMAL) Differential, auto (08/19/2024 2:57 AM CDT) Pathologist [facility] Neutrophil abs 7.40(H) 1.50 - 6.50 K/cumm Imm gran abs 0.04 0.00 - 0.10 K/cumm [facility] Lymphocyte abs 4.30(H) 0.80 - 3.30 K/cumm [facility] Monocyte abs 0.78 0.20 - 0.80 K/cumm [facility] Eosinophil abs 0.45 0.00 - 0.50 K/cumm [facility] Basophil abs 0.06 0.00 - 0.10 K/cumm [facility] Neutrophil pct 56.7 % [facility] Comment: Interpretive Data Percent cell count reference ranges are not reported, since discordance with absolute values may lead to misinterpretation of CBC data. Current Interpretive Data was last revised on 2017. Imm gran pct 0.3 % [facility] Comment: Interpretive Data Percent cell count reference ranges are not reported, since discordance with absolute values may lead to misinterpretation of CBC data. Current Interpretive Data was last revised on 2017. Lymphocyte pct 33.0 % [facility] Comment: Interpretive Data Percent cell count reference ranges are not reported, since discordance with absolute values may lead to misinterpretation of CBC data. Current Interpretive Data was last revised on 2017. Monocyte pct 6.0 % [facility] Comment: Interpretive Data Percent cell count reference ranges are not reported, since discordance with absolute values may lead to misinterpretation of CBC data. Current Interpretive Data was last revised on 2017. Eosinophil pct 3.5 % [facility] Comment: Interpretive Data Percent cell count reference ranges are not reported, since discordance with absolute values may lead to misinterpretation of CBC data. Current Interpretive Data was last revised on 2017. Basophil pct 0.5 % [facility] Comment: Interpretive Data Percent cell count reference ranges are not reported, since discordance with absolute values may lead to misinterpretation of CBC data. Current Interpretive Data was last revised on 2017. Blood 08/19/2024 2:57 AM CDT 08/19/2024 3:00 AM CDT us Jennifer Ordonez MD LAB BLOOD ORDERABLES Fin al Result [facility] [address] [facility] Department [place] [address] * (ABNORMAL) CBC with auto differential (08/19/2024 2:57 AM CDT) WBC 13.03(H) 3.80 - 9.90 K/cumm Hgb 11.9 11.9 - 15.5 g/dL [facility] Hct 37.3 35.6 - 45.5 % [facility] Plt 263 150 - 400 K/cumm [facility] MPV 11.3 9.1 - 12.3 fL [facility] RBC 4.25 3.90 - 5.20 M/cumm [facility] MCV 87.8 81.3 - 96.4 fL [facility] MCH 28.0 27.1 - 33.3 pg [facility] MCHC 31.9(L) 32.3 - 35.7 g/dL [facility] RDW CV 13.8 11.1 - 14.9 % [facility] RDW SD 44.2 35.7 - 48.1 fL [facility] NRBC abs 0.00 0.00 - 0.01 K/cumm [facility] Blood Venous blood specimen / Unknown 08/19/2024 2:57 AM CDT 08/19/2024 3:00 AM CDT Jennifer Ordonez MD LAB BLOOD ORDERABLES Fin al Result Performing Organization Address City/[facility] Co de Phone Number [address] [place] [address] * Lipase (08/19/2024 2:57 AM CDT) [facility] Lipase 45 10 - 99 Units/L Blood Venous blood specimen / Unknown 08/19/2024 2:57 AM CDT 08/19/2024 3:00 AM CDT Jennifer Ordonez MD LAB BLOOD ORDERABLES Fin al Result Performing Organization Address [facility] de Phone Number [address] [place] [address] * Comprehensive metabolic panel (08/19/2024 2:57 AM CDT) [facility] Sodium 140 135 - 145 mmol/L Potassium, pl 3.8 3.3 - 4.9 mmol/L [facility] Chloride 104 97 - 110 mmol/L [facility] CO2 24 22 - 32 mmol/L [facility] Anion gap 12 2 - 15 mmol/L [facility] BUN 15 6 - 25 mg/dL [facility] Creatinine 0.89 0.60 - 1.10 mg/dL [facility] Glucose 109 70 - 199 mg/dL [facility] Comment: Interpretive Data Fasting glucose >/= 126 mg/dl is diagnostic for diabetes. Fasting is defined as no caloric intake for at least 8 hours. Fasting glucose between 100 mg/dl to 125 mg/dl is diagnostic of prediabetes. In a patient with classic symptoms of hyperglycemia or hyperglycemic crisis, a random glucose >/= 200 mg/dl is diagnostic for diabetes. In the absence of unequivocal hyperglycemia, results should be confirmed by repeat testing. The classification and Diagnosis of Diabetes Diabetes Care 2021; 46: S19-S40. Current interpretive data was last revised 2022. Calcium 8.9 8.5 - 10.3 mg/dL [facility] Bilirubin, total 0.3 0.1 - 1.2 mg/dL [facility] Protein, pl 7.1 6.5 - 8.5 g/dL [facility] Albumin 3.8 3.5 - 5.0 g/dL [facility] Alk phos 92 40 - 130 Units/L [facility] ALT 9 7 - 45 Units/L [facility] AST 18 10 - 45 Units/L [facility] Blood 08/19/2024 2:57 AM CDT 08/19/2024 3:00 AM CDT Jennifer Ordonez MD LAB BLOOD ORDERABLES Fin al Result Performing Organization Address [facility] de Phone Number [facility] [address] [facility] Department [place] [address] * ECG 12 lead (08/19/2024 2:17 AM CDT) Ventricular Rate EKG/Min [address] [facility] Atrial Rate 84 BPM [facility] [place]-Interval (MSEC) 152 ms [facility] QRS-Interval (MSEC) [address] [facility] QT-Interval (MSEC) [address] [facility] QTc [address] [facility] P [place] [address] [facility] R [place] 36 degrees [facility] T [place] [address] [facility] Diagnosis Normal sinus rhythm Normal ECG No previous ECGs available Confirmed by CORAL CASTANEDA, JULISSA ([id number]) on 08/20/2024 12:28:41 PM [facility] 08/19/2024 2:17 AM CDT 08/20/2024 12:28 PM CDT Jennifer Ordonez MD ECG ORDERABLES Final Re sult Performing Organization Address [facility] de Phone Number [facility] from Last 3 Months Insurance [facility] Care Teams [employer]omanufacturing Technician Relationship Specialty Start Date End Date Kandi Villalobos MD [address] [facility] [address] [place] [address] PCP - General Family Medicine 08/19/24
--- OUTSIDE RECORDS SUMMARY | 2024-11-06 15:17 | XMS_ITS | Referral Summary ---
Author Organization [facility] Address [address] [place] [phone] Care Team Providers Care Automotive Painter Helper Name Role Phone Kandi Villalobos MD Primary Care Provider Encounters Date Type Department Care Team Description 08/19/2024 4:59 AM CDT - 08/19/2024 11:15 AM CDT Emergency [address] [address] RUQ abdominal pain (Primary Dx) Discharge Disposition: Discharge to home or self care from Last 3 Months Allergies No known active allergies Social History Tobacco Use Types Packs/Day Years [...] on file Sexual Orientation Not on file Last Filed Vital Signs Vital Sign Reading [...] Mass Index - - Plan of Treatment Not on file Procedures Procedure Name Priority Date/Time Associated Diagnosis [...] thickening or pericholecystic fluid. No positive sonographic Stratford sign reported. BILIARY SYSTEM: There is no evidence of intrahepatic or extrahepatic biliary ductal dilatation. The common bile duct measures 0.29 cm in diameter. LIVER: The visualized portion of the liver appears unremarkable. OTHER: No other significant findings. IMPRESSION: Normal gallbladder sonogram. THIS IS AN ELECTRONICALLY VERIFIED FINAL REPORT 08/19/2024 10:01 AM - Electronically signed by Pablo Vela M.D. RB T: Report ID: [id number] Reading Location: [id number] Procedure Note Pablo Vela MD - 08/19/2024 EXAM DESCRIPTION: US GALLBLADDER REASON FOR STUDY: Acute abdominal pain with cholecystitis suspected onsame day CT abdomen. TECHNIQUE: Ultrasound of the gallbladder was performed with grayscaleimaging. COMPARISON: 08/19/2024 CT abdomen pelvis FINDINGS: GALLBLADDER: The gallbladder appears unremarkable. No cholelithiasis. No gallbladder wall thickening or pericholecystic fluid.No positive sonographic Stratford sign reported. BILIARY SYSTEM: There is no evidence of intrahepatic or extrahepaticbiliary ductal dilatation. The common bile duct measures 0.29 cm in diameter. LIVER: The visualized portion of the liver appears unremarkable. OTHER: No other significant findings. IMPRESSION: Normal gallbladder sonogram. THIS IS AN ELECTRONICALLY VERIFIED FINAL REPORT 08/19/2024 10:01 AM - Electronically signed by Pablo Vela M.D. RB T: Report ID: [id number] Reading Location: [id number] us Carmina R[place] US PROCEDURES Final Result * CT Abdomen [...] Concepcion Marcus M.D. SN T: Report ID: [id number] Reading Location: [id number] Procedure Note Concepcion Marcus MD - 08/19/2024 EXAM DESCRIPTION: CT ABDOMEN PELVIS W CONTRAST REASON FOR STUDY: Abdominal pain, acute, nonlocalized Patient came in [facility] for abdominal pain. Patient has on07/12/24. Patient [...] Concepcion Marcus M.D. SN T: Report ID: [id number] Reading Location: [id number] Cristela KEMP IMG CT PROCEDURES Final Result * POCT hCG, urine (08/19/2024 5:10 AM CDT) HCG, ur, POC Negative Negative Lot Number [id number] QC Backgroud Clear Acceptable QC Control Line Acceptable Urine 08/19/2024 5:10 AM CDT Result [facility] Jennifer Ordonez MD POINT OF CARE TEST ORDER NOHEMI Final Result * Troponin T high-sensitivity 2-hour (08/19/2024 4:56 AM CDT) Trop T hs <6 <=14 ng/L Comment: Interpretive Data For further hscTnT resources including the diagnostic algorithm and an aid in interpretation, copy and paste this link: https://nrl.testcatalog.org/show/hsTrop Current Interpretive Data last revised 2020. Trop T hs delta 0 ng/L [facility] PETTIT Trop T hs interp Insignificant [facility]IT Blood 08/19/2024 4:56 AM CDT 08/19/2024 5:03 AM CDT Jennifer Ordonez MD LAB BLOOD ORDERABLES Fin al Result [facility] [address] [facility] Department [place] [address] * (ABNORMAL) Urinalysis reflex to microscopic and culture Urine (08/19/2024 3:26 AM CDT) Color, ur Yellow Yellow Clarity, ur Clear Clear [facility] Specific gravity, ur 1.026 1.003 - 1.030 [facility] pH, urine 6.5 [facility] Comment: Interpretive Data U rine pH is affected by diet, medications, systemic acid-base disturbances, and renal tubular function. pH may affect urinary stone formation. For example, urine pH below 6.0 may help reduce the tendency for calcium phosphate stones and pH greater than 6.0 may reduce the tendency for uric acid stone formation. Source: [facility] Current Interpretive Data was last revised on 2017 Protein, ur ql Negative Negative [facility] Glucose, ur ql Negative Negative [facility] Ketones, ur Negative Negative [facility] Bilirubin, ur Negative Negative [facility] Blood, ur 1+(A) Negative [facility] Urobilinogen, ur <2.0 <2.0 mg/dL [facility] Nitrite, ur Negative Negative [facility] Leukocyte esterase, ur 1+(A) Negative [facility] UA reflex comment Reflex to microscopic UA will be performed. [facility] Urine 08/19/2024 3:26 AM CDT 08/19/2024 3:43 AM CDT Jennifer Ordonez MD LAB MICROBIOLOGY - [facility] AL ORDERABLES Final Result [place] [id number] [facility] Department [place] [address] * (ABNORMAL) Urinalysis, microscopic only (08/19/2024 3:26 AM CDT) WBC, ur 0-5 0 - 5 /HPF RBC, ur 6-10(A) 0 - 2 /HPF [facility] Epithelial cells, squamous, ur 1-5 0 - 5 /HPF [facility] Bacteria, ur Trace(A) [facility] Mucous, ur Present(A) [facility] Culture Reflex Comment Reflex conditions for urine culture (WBC >10) not met. [facility] Urine 08/19/2024 3:26 AM CDT 08/19/2024 3:43 AM CDT Jennifer Ordonez MD LAB URINE ORDERABLES Fin al Result Performing Organization Address [facility] de Phone Number [facility] [address] [address] * Troponin T high-sensitivity series (baseline, 2hr, 4hr, 6hr) (08/19/2024 2:57 AM CDT) Pathologist [facility] Trop T hs <6 <=14 ng/L Comment: Interpretive Data For further hscTnT resources including the diagnostic algorithm and an aid in interpretation, copy and paste this link: https://nrl.testcatalog.org/show/hsTrop Current Interpretive Data last revised 2020. Blood 08/19/2024 2:57 AM CDT 08/19/2024 3:00 AM CDT Jennifer Ordonez MD LAB BLOOD ORDERABLES Fin al Result Performing Organization Address [facility] de Phone Number [facility] [address] [address] * eGFR (08/19/2024 2:57 AM CDT) [facility] eGFR >90 >=60 mL/min/1. 73 m2 Comment: [...] of Race in Diagnosing Kidney Disease, JASN 202). The CKD-EPI equation should not be used for patients with unstable renal function and has not been validated in children and those over 70. Current interpretive data was last reviewed 2021. Blood 08/19/2024 2:57 AM CDT 08/19/2024 3:00 AM CDT Jennifer Ordonez MD LAB BLOOD ORDERABLES Fin al Result [facility] [address] [facility] Department [place] [address] * (ABNORMAL) Differential, auto (08/19/2024 2:57 AM CDT) Neutrophil abs 7.40(H) 1.50 - 6.50 K/cumm Imm gran abs 0.04 0.00 - 0.10 K/cumm [facility] Lymphocyte abs 4.30(H) 0.80 - 3.30 K/cumm [facility] Monocyte abs 0.78 0.20 - 0.80 K/cumm [facility] Eosinophil abs 0.45 0.00 - 0.50 K/cumm [facility] Basophil abs 0.06 0.00 - 0.10 K/cumm [facility] Neutrophil pct 56.7 % [facility] Comment: Interpretive Data Percent cell count reference ranges are not reported, since discordance with absolute values may lead to misinterpretation of CBC data. Current Interpretive Data was last revised on 2017. Imm gran pct 0.3 % [facility] Comment: Interpretive Data Percent cell count reference ranges are not reported, since discordance with absolute values may lead to misinterpretation of CBC data. Current Interpretive Data was last revised on 2017. Lymphocyte pct 33.0 % [facility] Comment: Interpretive Data Percent cell count reference ranges are not reported, since discordance with absolute values may lead to misinterpretation of CBC data. Current Interpretive Data was last revised on 2017. Monocyte pct 6.0 % [facility] Comment: Interpretive Data Percent cell count reference ranges are not reported, since discordance with absolute values may lead to misinterpretation of CBC data. Current Interpretive Data was last revised on 2017. Eosinophil pct 3.5 % [facility] Comment: Interpretive Data Percent cell count reference ranges are not reported, since discordance with absolute values may lead to misinterpretation of CBC data. Current Interpretive Data was last revised on 2017. Basophil pct 0.5 % [facility] Comment: Interpretive Data Percent cell count reference ranges are not reported, since discordance with absolute values may lead to misinterpretation of CBC data. Current Interpretive Data was last revised on 2017. Blood 08/19/2024 2:57 AM CDT 08/19/2024 3:00 AM CDT Jennifer Ordonez MD LAB BLOOD ORDERABLES Fin al Result Performing Organization Address City/[facility] Co de Phone Number [address] [place] [address] * (ABNORMAL) CBC with auto differential (08/19/2024 2:57 AM CDT) WBC 13.03(H) 3.80 - 9.90 K/cumm Hgb 11.9 11.9 - 15.5 g/dL [facility] Hct 37.3 35.6 - 45.5 % [facility] Plt 263 150 - 400 K/cumm [facility] MPV 11.3 9.1 - 12.3 fL [facility] RBC 4.25 3.90 - 5.20 M/cumm [facility] MCV 87.8 81.3 - 96.4 fL [facility] MCH 28.0 27.1 - 33.3 pg [facility] MCHC 31.9(L) 32.3 - 35.7 g/dL [facility] RDW CV 13.8 11.1 - 14.9 % [facility] RDW SD 44.2 35.7 - 48.1 fL [facility] NRBC abs 0.00 0.00 - 0.01 K/cumm [facility] Blood Venous blood specimen / Unknown 08/19/2024 2:57 AM CDT 08/19/2024 3:00 AM CDT Jennifer Ordonez MD LAB BLOOD ORDERABLES Fin al Result Performing Organization Address City/[facility] Co de Phone Number [address] [place] [address] * Lipase (08/19/2024 2:57 AM CDT) Pathologist [facility] Lipase 45 10 - 99 Units/L Blood Venous blood specimen / Unknown 08/19/2024 2:57 AM CDT 08/19/2024 3:00 AM CDT Jennifer Ordonez MD LAB BLOOD ORDERABLES Fin al Result [facility] [address] [facility] Department [place] [address] * Comprehensive metabolic panel (08/19/2024 2:57 AM CDT) [facility] Sodium 140 135 - 145 mmol/L Potassium, pl 3.8 3.3 - 4.9 mmol/L [facility] Chloride 104 97 - 110 mmol/L [facility] CO2 24 22 - 32 mmol/L [facility] Anion gap 12 2 - 15 mmol/L [facility] BUN 15 6 - 25 mg/dL [facility] Creatinine 0.89 0.60 - 1.10 mg/dL [facility] Glucose 109 70 - 199 mg/dL [facility] Comment: Interpretive Data Fasting glucose >/= [...] classification and Diagnosis of Diabetes Diabetes Care 202; 46: S19-S40. Current interpretive data was last revised 2022. Calcium 8.9 8.5 - 10.3 mg/dL [facility] Bilirubin, total 0.3 0.1 - 1.2 mg/dL [facility] Protein, pl 7.1 6.5 - 8.5 g/dL [facility] Albumin 3.8 3.5 - 5.0 g/dL [facility] Alk phos 92 40 - 130 Units/L [facility] ALT 9 7 - 45 Units/L [facility] AST 18 10 - 45 Units/L [facility] Blood 08/19/2024 2:57 AM CDT 08/19/2024 3:00 AM CDT Jennifer Ordonez MD LAB BLOOD ORDERABLES Fin al Result Performing Organization Address City/[facility]/ZIP Co de Phone Number [facility] [address] [facility] Department [place] [address] * ECG 12 lead (08/19/2024 2:17 AM CDT) Ventricular Rate EKG/Min 84 BPM [facility] Atrial Rate 84 BPM [facility] MI-Interval (MSEC) 152 ms [facility] QRS-Interval (MSEC) 82 ms [facility] QT-Interval (MSEC) 380 ms [facility] QTc 449 ms [facility] P [place] 50 degrees [facility] R [place] 36 degrees [facility] T [place] 18 degrees [facility] Diagnosis Normal sinus rhythm Normal ECG No previous ECGs available Confirmed by JULISSA MONCADA MD ([facility]) on 08/20/2024 12:28:41 PM [facility] 08/19/2024 2:17 AM CDT 08/20/2024 12:28 PM CDT Jennifer Ordonez MD ECG ORDERABLES Final Re sult Performing Organization Address [facility] Co de Phone Number [facility] from Last 3 Months Insurance [facility] Care Teams Automotive Painter Helper Relationship Specialty Start Date End Date Kandi Villalobos MD [address] [facility] [address] [place] [address] PCP - General Family Medicine 08/19/24
[2024-11-06 17:31] LABS: Vitamin B12 645.0 pg/mL (239-931)
== END 2024-11-06 15:14 | disposition home or self-care (01) ==
PROVIDERS: PCP Family Medicine
DX: Z11.1 Encounter for screening for respiratory tuberculosis (principal); D64.9 Anemia, unspecified
CPT/HCPCS: 36415; 82607; 86480

== ENCOUNTER 2024-11-20 08:58 | Outpatient (CLI) | payer OTHER, BC, SELFPAY ==
--- OUTSIDE RECORDS SUMMARY | 2024-11-20 09:12 | XMS_ITS | Clinical Summary ---
Author Organization [facility] Address [address] [place] [phone] Care Team Providers Care Dulser Name Role Phone Kandi Villalobos MD Primary Care Provider Allergies No known active allergies Social History [...] on patient's age to complete this topic Insurance [facility] Care Teams Dulser Relationship Specialty Start Date End Date Kandi Villalobos MD [address] [facility] [address] [place] [address] PCP - General Family Medicine 08/19/24
--- OUTSIDE RECORDS SUMMARY | 2024-11-20 09:12 | XMS_ITS | Referral Summary ---
Author Organization [facility] Address [address] [place] [phone] Care Team Providers Care Tractor Operator Name Role Phone Kandi Villalobos MD Primary [...] - Plan of Treatment Not on file Insurance [facility] Care Teams Tractor Operator Relationship Specialty Start Date End Date Kandi Villalobos MD [address] [facility] [address] [place] [address] PCP - General Family Medicine 08/19/24
== END 2024-11-20 08:59 | disposition home or self-care (01) ==
LOC: ANHGOSHLAB 08:59
PROVIDERS: PCP Family Medicine; Visit Provider Otolaryngology Otolaryngology/Facial Plastic Surgery
DX: K14.0 Glossitis (principal); J30.9 Allergic rhinitis, unspecified; J02.9 Acute pharyngitis, unspecified
CPT/HCPCS: 86003